=== PATIENT | male | born 1945 | race Caucasian/White ===

== ENCOUNTER 2019-12-05 14:34 | Outpatient (CLI) | payer OTHER, SELFPAY ==
--- NOTE | ~2019-12-05 | XR_ITS ---
XR hip BI 2V w AP pelvis DATE: 12/05/2019 15:29 INDICATION: Right hip pain and low back pain. No known injury. TECHNIQUE: AP pelvis. AP and lateral views of each hip. COMPARISON: 05/24/2019 CT chest abdomen pelvis FINDINGS: There is interval postoperative change since 05/24/2019, including lower lumbar laminectomy and bilateral posterior spinal fusion at L3-L5 and interbody spinal fusion at L3-4. There is a transitional fifth lumbar vertebra with sacralization and pseudoarthrosis on the left. No pelvic fracture or bone destruction. The pubic symphysis and sacroiliac joints are intact. Hip yancy nt spaces are symmetric and relatively preserved. No fracture, dislocation, avascular necrosis or bon e destruction of either hip is evident. 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 SACTION MANAGER IMPRESSION: Interval laminectomy and L3-L5 spinal fusion since 05/24/2019 Transitional lumbosacral vertebra with sacralization pseudoarthrosis on the lef t No pelvic or hip fracture or dislocation
--- NOTE | ~2019-12-05 | XR_ITS ---
EXAMINATION: XR knee LT 2V, XR knee RT 2V DATE: 12/05/2019 15:29 INDICATION: Bilateral knee pain TECHNIQUE: 1. AP and flexed lateral views of the left knee were obtained. 2. AP and flexed lateral views of the right knee were obtained. COMPARISON: None. FINDINGS: Normal alignment at both knees. No fractures. Relative symmetric mild patellofemoral predominant tric ompartmental osteoarthritis at both knees. No joint effusion at either the left or right knee. Small loose osteochondral bodies at the posterior recess of both knees. There is a larger 7.7 x 2.7 cm rim calcified heterotopic ossicle posterior to the left knee. IMPRESSION: 1. 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 Reviewed, dictated and finalized at location A. ISTRY QUALITY CONTROL ANALYST IMPRESSION: 1. Relatively symmetric mild patellofemoral predominant tricompartmental osteoa rthritis at both knees.
[2019-12-05 18:17] LABS: Folic Acid > 20.0 ng/mL (2.76->20)
== END 2019-12-05 14:35 | disposition home or self-care (01) ==
PROVIDERS: PCP Emergency Medicine; Visit Provider Emergency Medicine
DX: M25.551 Pain in right hip (principal); M25.552 Pain in left hip; M25.561 Pain in right knee; M25.562 Pain in left knee
CPT/HCPCS: 36415; 73521; 73560; 82607; 82746

== ENCOUNTER 2019-12-05 14:44 | Outpatient (CLI) | payer OTHER, SELFPAY ==
--- NOTE | ~2019-12-05 | XR_ITS ---
EXAMINATION:XR cervical spine 4-5V DATE: 12/05/2019 15:30 INDICATION: Neck pain post prior cervical spinal fusion TECHNIQUE: AP, lateral, lateral swimmers and odontoid views of the cervical spine are provided. COMPARISON: 08/12/2019 FINDINGS: Instrumented posterior spinal fusion extending from C3 through T1 with bilateral vertical rods and la teral mass screws bilaterally at C3, C4, on the left at C5, on the right at C6 and with bilateral ped icle screws at T1. No evident instrumentation failure or lucency surrounding the screws to suggest lo osening. Resection of the spinous processes of C3-C7. Unchanged minimal cervical thoracic levocurvatu re. Sagittal alignment remains normal. Vertebral body heights are normal. Unchanged mild disc height loss at C3-C4, C5-C6 and moderate disc height loss at C6-C7. Small posterior endplate osteophytes at C3-C4, C4-C5 and C5-C6. Odontoid is intact. Normal atlantoaxial interval. Atherosclerotic calcificat ions along the bilateral carotid bulbs. Prevertebral soft tissues are normal. Visualized apices of l ungs are clear. IMPRESSION: 1. Instrumented C3-T1 posterior spinal fusion. 2. No significant interval change in moderate cervical spondylosis. Reviewed, dictated and finalized at location A. CE LIAISON OFFICER
== END 2019-12-05 14:45 | disposition home or self-care (01) ==
LOC: ANHIMG 14:54
PROVIDERS: PCP Emergency Medicine; Visit Provider Neurological Surgery
DX: Z98.1 Arthrodesis status (principal); M47.892 Other spondylosis, cervical region
CPT/HCPCS: 72050

== ENCOUNTER 2019-12-08 13:13 | Outpatient (CLI) | payer OTHER, SELFPAY ==
--- NOTE | ~2019-12-08 | XR_ITS ---
XR lumbar spine min 4V DATE: 12/08/2019 13:44 INDICATION: Chronic lumbar spinal fusion TECHNIQUE: AP and lateral views. Flexion and extension lateral views. COMPARISON: 10/03/2019 lumbar spine FINDINGS: Status post lower lumbar laminectomy and posterior and interbody spinal fusion at L3-L5. Th e pedicle screws and rods appear intact, without evidence fracture or displacement since 10/03/2019. There is stable minimal retrolisthesis at L1-2 and L2-3 in neutral, flexion and extension. There is mild retrolisthesis at L3-4, in flexion, extension and neutral. No fracture or bone destruction is evident. The sacroiliac joints are intact. There is a transitional fifth lumbar vertebra with sacralization pseudoarthrosis on the left. The sacroiliac joints appear normal. There is extensive calcification and some tortuosity of the abdominal aorta. IMPRESSION: Status post lower lumbar laminectomy and posterior and interbody spinal fusion at L3-L5 Stable minimal retrolisthesis at L1-2 and L2-3 Mild retrolisthesis at L3-4 Transitional fifth lumbar vertebra with sacralization pseudoarthrosis on the left Reviewed, dictated and finalized at location B. NESS DEVELOPMENT MANAGER IMPRESSION: Status post lower lumbar laminectomy and posterior and interbody sp inal fusion at L3-L5 Stable minimal retrolisthesis at L1-2 and L2-3 Mild retrolisthesis at L3-4 Transitional fifth lumbar vertebra with sacralization pseudoarthrosis on the le ft
== END 2019-12-08 13:14 | disposition home or self-care (01) ==
LOC: ANHIMG 13:19
PROVIDERS: PCP Emergency Medicine; Visit Provider Neurological Surgery
DX: Z98.1 Arthrodesis status (principal); M96.0 Pseudarthrosis after fusion or arthrodesis
CPT/HCPCS: 72110

== ENCOUNTER 2019-12-23 09:05 | Outpatient (CLI) | payer OTHER, SELFPAY ==
[2019-12-16 15:11] VITALS: BMI 27.9
--- NOTE | ~2019-12-23 | CT_ITS ---
EXAMINATION: CT lumbar spine w con EXAM DATE: 12/23/2019 11:13 INDICATION: Back pain. Spine fusion. TECHNIQUE: Spiral CT of the lumbar spine was performed following injection of 13 mL Omnipaque 180 levon ution into the spinal canal. Axial, coronal and sagittal images were reviewed. The dose-length prod uct (DLP) for this examination was 1151.61 mGy-cm. The exposure was tailored according to patient s ize (auto mA exposure control), and iterative reconstruction (ASIR) was used as additional dose reduc tion technique. Comparison is made to prior examination from 05/08/2019. FINDINGS: There are 5 lumbar vertebral bodies. Interval L3-5 posterior and interbody fusion and lola ectomies. Hardware is intact, no periprosthetic lucency. Both intrathecal and subdural contrast. Ther e is no myelographic block. There is 3 mm retrolisthesis L3 on L4. Conus terminates at the T12-L1 lev el. Abdominal aortic ectasia and arteriosclerosis. Level by level evaluation: T10-11: There is a minimal diffuse disc bulge. Facet arthropathy: Mild to moderate. Neural foraminal stenosis: Incompletely imaged. Central canal stenosis: No stenosis. T11-12: There is a minimal diffuse disc bulge. Facet arthropathy: Mild . Ligamentum flavum enlargement. Neural foraminal stenosis: No stenosis. Central canal stenosis: Mild. T12-L1: There is a minimal diffuse disc bulge. Facet arthropathy: Mild left.. Neural foraminal stenosis: No stenosis. Central canal stenosis: No stenosis. L1-2: There is a mild to moderate diffuse disc bulge. Facet arthropathy: Mild to moderate . Ligamentum flavum enlargement. Neural foraminal stenosis: Severe left, mild to moderate right. Central canal stenosis: Moderate. Nerve root crowding L2-L3: There is a mild to moderate diffuse disc bulge. Facet arthropathy: Moderate . Ligamentum flavum enlargement. Neural foraminal stenosis: Mild to moderate bilateral. Central canal stenosis: Moderate. Nerve root crowding L3-L4: There is a mild diffuse disc bulge. Facet arthropathy: Mild bilateral. Neural foraminal stenosis: Mild to moderate left, mild right. Central canal stenosis: Posterior decompression. L4-L5: This level is fused. Facet arthropathy: Moderate to severe. Neural foraminal stenosis: Mild to moderate left, mild right. Central canal stenosis: Posterior decompression. L5-S1: There is a mild diffuse disc bulge. Facet arthropathy: Moderate. Neural foraminal stenosis: Moderate left, mild to moderate right. Central canal stenosis: No stenosis. IMPRESSION: 1. L1-2 severe left neural foraminal stenosis. 2. L1-2 and L2-3 moderate central canal stenosis with nerve root crowding. 3. Interval L3-5 laminectomies, fusion. 4. Intrathecal and subdural contrast from myelogram. Reviewed, dictated and finalized at location A. RANCE TERRITORY MANAGER
--- NOTE | ~2019-12-23 | XR_ITS ---
EXAMINATION: XR myelogram spine lumbosacral EXAM DATE: 12/23/2019 11:30 INDICATION: Back pain. Fusion. TECHNIQUE: Informed consent was obtained from the patient for doing this procedure. I discussed charmaine efits and risks including bleeding, infection, backache, headache and seizure. Alternatives also disc ussed. The DAP for this procedure was 8.5 Gycm2. Correlation made to a prior lumbar CT from last year , 05/08/2019. Time out procedure was performed. Test Rider radiograph was obtained. An entry site was chosen at the L4 level. A midline approach was used. Standard sterile prep was done with Betadine. Entry site was infiltrated with 3 cc 1% lidocaine. A 3.5 22G spinal needle was then inserted into the spinal canal . 13 milliliters Omnipaque 180 were then injected into the thecal sac. Frontal, oblique fluoroscopic images were then acquired. The patient was then transferred to CT scan for spiral CT of the lumbar spine. Following this, patient was placed in postoperative area for 2 hours observation prior to being discharged. There were no immediate complications. FINDINGS: There are 12 thoracic rib-bearing vertebral bodies and 5 nonrib-bearing lumbar vertebral brett dies. Incompletely imaged cervical fusion. There is posterior and interbody fusion L3-L5. Intrathecal contrast was confirmed. A portion of the contrast was also subdural in location, not identified unti l the CT scan. There is no myelographic block. No hardware fracture. There is 3 mm retrolisthesis L3 on L4. Lumbar facet arthropathy. IMPRESSION: Myelogram performed for subsequent CT lumbar spine. Reviewed, dictated and finalized at location A. EMS ANALYST
[2019-12-23 09:40] LABS: Mean Platelet Volume 9.6 fl (7.4-10.4); Platelet Count Result 195 k/mm3 (150-375)
[2019-12-23 09:49] LABS: Prothrombin Time 12.9 Seconds (11.1-14.7)
[2019-12-23 10:35] VITALS: BP 155/99; PULSE 77; RESP 16; O2SAT 96
[2019-12-23 11:00] VITALS: BP 161/91; PULSE 73; RESP 20
[2019-12-23 11:33] VITALS: BP 155/83; PULSE 73; RESP 16; O2SAT 95
[2019-12-23 12:00] VITALS: BP 154/82; PULSE 73; RESP 20; O2SAT 92
[2019-12-23 12:44] VITALS: BP 151/74; PULSE 77; RESP 20; O2SAT 97
--- NOTE | 2019-12-23 13:12 | SUR.PHASEII ---
1255 dr carmen at bedside to report findings to pt/spouse and give disk for follow up physician. pt meets anesthesia criteria and dr carmen criteria for discharge
== END 2019-12-23 13:14 | disposition home or self-care (01) ==
LOC: ANHSURGERY 09:08
PROVIDERS: Radiology Diagnostic Radiology; PCP Emergency Medicine; Visit Provider Neurological Surgery
DX: Z98.1 Arthrodesis status (principal); M48.061 Spinal stenosis, lumbar region without neurogenic claudication
CPT/HCPCS: 36415; 62304; 72132; 85049; 85610; Q9965

== ENCOUNTER 2020-01-19 11:00 | Outpatient (RCR) | payer OTHER, SELFPAY ==
--- NOTE | 2019-12-20 14:35 | PTOPEVAL ---
INITIAL PHYSICAL THERAPY EVALUATION and PLAN OF CARE Thank you for referring Max to [facility]. He will be seen in PT 2x/wk for 4 wks. Please review, sign, date and return this plan of care ASPEN. I agree with and certify that the following plan of care is medically necessary. Referring Physician Date Admitting Provider: Attending Provider: Tee Gonzalez MD Referring Provider: *PT Outpatient Evaluation Start: 12/20/19 12:43 Freq: Status: Active Protocol: Document 12/20/19 12:35 FRANKLIN (Rec: 12/20/19 14:35 FRANKLIN [id number]) Therapy Assessment Status Assessment Status Assessment Status Evaluation Outpatient Past Medical History Neurological History Hx Neurological Disorders No Significant History Cardiovascular History Hx Hypertension Yes Respiratory History Hx Respiratory Disorders No Significant History Gastrointestinal History Hx Gastrointestinal Disorders No Significant History Genitourinary History Hx Genitourinary Disorders No Significant History Musculoskeletal History Hx Arthritis Yes: bilat knee Hx Back Pain Yes Hx Spinal Surgery Yes: FUSION - cervical, lumbar Hematological History Hx Hematological Disorders No Significant History Endocrine History Hx Endocrine Disorders No Significant History HEENT History Hx HEENT Disorders No Significant History Integumentary History Hx Other Skin Disorders Yes: ROSACEA Reproductive History Hx Reproductive Disorders No Significant History Psychosocial History Hx Psychiatric Disorders No Significant History Pain History Has Past Pain Affected Your Daily Life Yes: BACK PAIN Anesthesia History Hx Anesthesia Reactions No Significant History Other History Hx Other Medical Conditions Yes: B12 deficiency Evaluation Information Problem Diagnosis radiculopathy, lumbar region Additional Evaluation Detail surgery 08/03/19 - fusin L3-L5 - arthritis and disc material was removed, interbody fusion L3-4 surgery 06/27/19 - fusion C3-T1 - C3-6 decompression Subjective Information May 05, 2019 - went down to Query Text:As Reported By Patient/ knees onto patio, when on Family hands/knees - no strength to get back up Eventually able to get back up into his bed. Went to ED next day - was able to get moving with wh walker - eventurally saw Dr. Quick - cervical surgery first, then lumbar spine surgery.
--- NOTE | 2020-01-10 11:35 | PCPTNOTE ---
Patient called & cancelled scheduled appointment this date due to having a pain injection, & was told rest for today.
--- NOTE | 2020-01-19 15:51 | PTOPEVAL ---
PHYSICAL THERAPY DISCHARGE SUMMARY Thank you for referring Max to [facility]. He has been seen for 7 visits and has met goals set. He is compliant with HEP - which was upgraded this date. I agree with Max' discharge from physical therapy. Referring Physician Date Admitting Provider: Attending Provider: eTe Gonzalez MD Referring Provider: *PT Outpatient Evaluation Start: 12/20/19 12:43 Freq: Status: Active Protocol: Document 01/19/20 11:10 FRANKLIN (Rec: 01/19/20 15:51 FRANKLIN [email or web address]) Therapy Assessment Status Assessment Status Assessment Status Discharge Evaluation Information Problem Subjective Information Max states that he did go Query Text:As Reported By Patient/ down into the basement when Family his son and grandson were over - didn't feel that bad. He stayed that his surgery which was scheduled for next week has been cancelled. He feels fine walking with his small base quad cane. Pain Assessment Timing of Pain Assessment Timing of Pain Assessment Assessment Pain Scale Pain Scale Used Numeric (1 - 10) Self Report Pain Assessment Bilateral Pelvis Reported Pain Level 1 Lowest Pain Intensity 0 Greatest Pain Intensity 4 Pain Score Pain Score 1: Self Report Cervical and Lumbar ROM Lumbar ROM Lumbar Flexion (0-90) 30 Query Text:Active in Degrees Lumbar Extension (0-40) 10 Query Text:Active in Degrees Lumbar Lateral Flexion Right (0-40) 15 Query Text:Active in Degrees Lumbar Lateral Flexion Left (0-40) 15 Query Text:Active in Degrees Lumbar Comments mild discomfort with side bending Myotomes Lower Extremity Myotomes Left L1,L2 Myotome-Hip Flexion Good+ 4/+/5 L3,L4 Myotome-Knee Extension Normal 5/5 L4,L5 Myotome-Ankle Dorsiflexion Good+ 4/+/5 L5 Myotome-Great Toe Extension/Gluteal Normal 5/5 Medius/Hamstring S1,S2 Myotome-Ankle Plantar Flexion/ Good+ 4/+/5 Ankle Eversion Right L1,L2 Myotome-Hip Flexion Good+ 4/+/5 L3,L4 Myotome-Knee Extension Normal 5/5 L4,L5 Myotome-Ankle Dorsiflexion Good 4/5 L5 Myotome-Great Toe Extension/Gluteal Normal 5/5 Medius/Hamstring S1,S2 Myotome-Ankle Plantar Flexion/ Good 4/5 Ankle Eversion Gait Assessment Gait Pattern Assessment Other Gait Observations with small base quad cane - improved heel/toe progression, symmetrical stance/swing
== END 2020-01-20 11:25 | disposition home or self-care (01) ==
LOC: ANHPT 11:00
PROVIDERS: PCP Emergency Medicine; Visit Provider Emergency Medicine
DX: M54.16 Radiculopathy, lumbar region (principal); R53.1 Weakness
CPT/HCPCS: 97110; 97162

== ENCOUNTER 2020-03-29 10:19 | Outpatient (CLI) | payer OTHER, SELFPAY ==
--- NOTE | ~2020-03-29 | US_ITS ---
EXAMINATION: US scrotum doppler DATE: 03/29/2020 11:05 INDICATION: Right testicular enlargement. TECHNIQUE: Grayscale and Doppler ultrasound images of the testes were obtained. COMPARISON: None. FINDINGS: The right testis measures 2.4 x 1.9 x 2.4 cm. The left testis measures 2.5 x 1.5 x 1.8 cm. The left testis is diffusely hypoechoic with asymmetric decreased vascularity. The right epididymis d emonstrates a 6 mm cyst. The left epididymis is normal with normal vascular flow. There is a large ri ght hydrocele. IMPRESSION: 1. A right hydrocele. 2. Diffusely hypoechoic left testis with asymmetric decreased vascularity, which may be secondary to infarct. Reviewed, dictated and finalized at location A. IMPRESSION: 1. A right hydrocele. 2. Diffusely hypoechoic left testis with asymmetric decreased vascularity, whic h may be secondary to infarct.
== END 2020-03-29 10:20 | disposition home or self-care (01) ==
PROVIDERS: PCP Emergency Medicine; Visit Provider Emergency Medicine
DX: N50.89 Other specified disorders of the male genital organs (principal); N43.3 Hydrocele, unspecified
CPT/HCPCS: 76870; 93976

== ENCOUNTER 2020-05-07 12:46 | Outpatient (CLI) | payer OTHER, SELFPAY ==
--- NOTE | ~2020-05-07 | XR_ITS ---
XR thoracolumbar 05/07/2020 13:11 Indication: Back pain. Post lumbar fusion. Procedure: 2 views lumbar spine Comparison: Comparison to multiple prior studies sequentially, with oldest reviewed study dated 08/02. Findings: There are surgical changes of lumbar spinal fusion from L1-L5. There are prosthetic disc de vices at L3-4 and L4-5, position unchanged. There are associated laminectomy changes at L2-L5. There is lateral bone graft mass at these levels. Hardware appears to be intact. There is atherosclerosis o f the aorta. There is moderate multilevel facet hypertrophy. No acute fracture or traumatic malalignm ent. Stable grade 1 spondylolisthesis at L4-5. There is disc narrowing at all lumbar levels. Impression: 1: Moderate lumbar spondylosis with fusion change at L1-L5. No acute abnormality of the lumbar spine. Reviewed, dictated and finalized at location A. Impression: 1: Moderate lumbar spondylosis with fusion change at L1-L5. No acute abnormalit y of the lumbar spine.
== END 2020-05-07 12:47 | disposition home or self-care (01) ==
PROVIDERS: PCP Emergency Medicine; Visit Provider Neurological Surgery
DX: Z98.1 Arthrodesis status (principal); M47.896 Other spondylosis, lumbar region
CPT/HCPCS: 72080

== ENCOUNTER 2020-05-19 11:25 | Emergency (ER) | payer OTHER, SELFPAY ==
--- NOTE | ~2020-05-19 | XR_ITS ---
EXAMINATION: XR chest 2V DATE: 05/19/2020 14:32 INDICATION: Fever. TECHNIQUE: Frontal and lateral views of the chest were obtained on 3 radiographs. COMPARISON: Chest 2 views 05/08/2019, chest CT 05/24/2019 FINDINGS: There are peripheral reticular opacities in the mid and lower lung zones. No pleural effusi on or pneumothorax. The heart size is normal. There are changes of posterior fusion procedure in cerv icothoracic spine. There are changes of posterior fusion procedure in lumbar spine. IMPRESSION: 1. Worsened peripheral reticular opacities in the mid and lower lung zones, likely chronic interstiti al lung disease. The differential diagnosis includes mild pulmonary edema. Reviewed, dictated and finalized at location A. IMPRESSION: 1. Worsened peripheral reticular opacities in the mid and lower lung zones, lik ellie chronic interstitial lung disease. The differential diagnosis includes mild pulmonary edema.
[2020-05-19 11:45] VITALS: BP 127/57; PULSE 88; RESP 20; TEMP 36.8; O2SAT 95
[2020-05-19 12:03] LABS: Basophils Percent Auto 0.4 % (0.2-1.2); Eosinophils Percent Auto 0.3 % (0-4.4); Hematocrit 39.9 % (42.0-52.0); Immature Granulocyte Absolute 0.03 K/mm3 (0.00-0.031); Immature Granulocyte Percent A 0.3 % (0-0.5); Lymphocytes Absolute Auto 0.84 K/mm3 (0.9-3.2); Lymphocytes Percent Auto 8.5 % (18.3-44.2); Mean Corpuscular HGB Conc 32.6 g/dl (32-36); Mean Corpuscular Hemoglobin 30.2 pg (26-34); Mean Corpuscular Volume 92.8 fl (80-100); Mean Platelet Volume 9.4 fl (7.4-10.4); Monocytes Percent Auto 9.8 % (2.6-8.5); Neutrophils Percent Auto 80.7 % (45.5-73.1); Platelet Count Result 224 k/mm3 (150-375); Red Cell Distribution Width 13.2 % (11.5-14.5); White Blood Count 9.9 K/mm3 (4.5-10.0)
[2020-05-19 12:13] LABS: Lactic Acid Reflex 1.4 mmol/L (0.7-2.1)
[2020-05-19 12:14] LABS: Alanine Aminotransferase 13 U/L (4-50); Albumin Level 3.8 g/dL (3.5-5.1); Alkaline Phosphatase 81 U/L (38-126); Aspartate Amino Transferase 18 U/L (17-59); Bilirubin,Total 0.8 mg/dL (0.2-1.3); Blood Urea Nitrogen 13 mg/dL (9-20); Calcium 9.5 mg/dL (8.4-10.2); Carbon Dioxide 23 mmol/L (22-30); Chloride 106 mmol/L (98-107); Estimated CRCL calculation 71 ml/min; Estimated Glomerular Filt Rate > 60; Glucose 175 mg/dL (75-110); Potassium 4.2 mmol/L (3.4-5.0); Sodium 138 mmol/L (137-145)
[2020-05-19 12:22] LABS: Add Urine Microscopic? YES; Appearance Urine Turbid (Clear); Bacteria Urine 1+ /hpf; Bilirubin Urine Negative (Negative); Blood Urine 2+ (Negative); Color Urine Yellow (Yellow); Glucose Urine UA Negative (Negative); Ketones Urine Negative (Negative); Leukocyte Esterase Ur 3+ LEU/UL (Negative); Mucus Urine Rare /lpf; Nitrate Urine Positive (Negative); Protein Urine 2+ mg/dL (Negative); RBC Urine 21-50 /hpf (0-2); Specific Grav Ur 1.013 (1.001-1.035); Urobilinogen Urine Negative mg/dL (<2.0); WBC Clumps Urine Present /HPF; WBC Urine >75 /hpf
[2020-05-19 13:00] VITALS: BP 160/66; PULSE 92; RESP 20; O2SAT 99
--- NOTE | 2020-05-19 13:39 | ED.FEVER ---
HPI - Fever General Chief Complaint: Fever Stated Complaint: fever Time Seen by Provider: 05/19/20 13:18 Source: patient and family Mode of arrival: ambulatory Limitations: no limitations History of Present Illness HPI Narrative: Patient is a 74-year-old male who presents for evaluation of fever. Patient has had a 103 degree fever at home throughout the night, improved with Tylenol. Patient also reports some dysuria without hematuria. No nausea, vomiting or flank pain. Patient also reports a dry cough. No shortness of breath or chest pain. No abdominal pain. Patient has history of UTI approximately 2 months ago, treated outpatient with antibiotics. Patient has a recent history of spinal surgery at [facility] by Dr. Quick. Patient denies any difficulty with urination or saddle anesthesia. No numbness or weakness. Related Data Home Medications Medication Instructions Recorded Confirmed calcium carbonate-vitamin D3 1 cap PO DAILY 12/16/19 12/16/19 [Calcium 600 + D(3)] calcium polycarbophil [FiberCon] 625 mg PO DAILY 12/16/19 12/16/19 folic acid 1 mg PO DAILY 12/16/19 12/16/19 multivitamin 1 tablet PO DAILY 12/16/19 12/16/19 sildenafil 50 mg PO DAILY PRN 12/16/19 12/16/19 Allergies Allergy/AdvReac Type Severity Reaction Status Date / Time No Known Allergies Allergy Verified 05/19/20 12:57 Review of Systems Review of Systems: Narrative: CONSTITUTIONAL: Reports fever and chills CARDIOVASCULAR: Denies chest pain RESPIRATORY: Denies cough or dyspnea. GASTROINTESTINAL: Denies abdominal pain : Reports dysuria SKIN: Denies rash MUSCULOSKELETAL: Denies back pain NEUROLOGIC: Denies headache [facility] Past Medical History Medical History (Updated 05/19/20 @ 15:16 by Hyacinth Serrano MD) Central spinal stenosis Dysuria Hip pain Knee pain Radiculopathy Testicular swelling Vitamin B 12 deficiency Surgical History Surgical History (Updated 05/19/20 @ 13:41 by Hyacinth Serrano MD) H/O Spinal surgery Social History Social History Smoking status: Never smoker Exam Narrative: Exam Narrative: GENERAL: Awake, alert, conversant HEAD: Normocephalic, atraumatic. EYES: PERRLA and EOMI. ENT: Nares clear, no rhinorrhea or epistaxis. Mucous membranes moist. NECK: Supple. CHEST: No respiratory distress, breathing even and non labored HEART: Regular rate, sinus rhythm ABDOMEN:Non distended, non tender EXTREMITIES: Normal range of motion. No edema. SKIN: Warm, dry, no rash. NEURO:No focal deficits. Alert and oriented x3 Course Vital Signs Vital signs: Vital Signs Temperature 36.8 C 05/19/20 11:45 Pulse Rate 88 05/19/20 11:45 Respiratory Rate 20 05/19/20 11:45 Blood Pressure 127/57 L 05/19/20 11:45 Pulse Oximetry 95 05/19/20 11:45 Temperature 36.8 C 05/19/20 11:45 Pulse Rate 92 05/19/20 13:00 Respiratory Rate 20 05/19/20 13:00 Blood Pressure 160/66 H 05/19/20 13:00 Pulse Oximetry 99 05/19/20 13:00 MDM - Fever MDM Narrative Medical decision making narrative: The patient presented for evaluation of dysuria and fever. The time of initial assessment ABCs are intact and vital signs are stable. Patient is afebrile here. No hypotension or tachycardia. Patient urinalysis consistent with a urinary tract infection. IV access obtained and patient was given IV fluids and first dose of antibiotics. No urine cultures in the patient chart to check for sensitivities. Patient has no sign of severe sepsis or septic shock. Obtain a chest x-ray as patient is reporting a mild, chronic cough, there are reticular opacities not consistent with COVID type features or community-acquired pneumonia. Will start patient on Keflex for urinary tract infection, advised follow-up with his primary care provider or to return should his fever worsen, have worsening pain or inability to tolerate the antibiotic. Given patient has no abdomin
[2020-05-19] MEDS: SODIUM CHLORIDE 0.9% IV 1,000 ML 999 ML IV CONT (14:01)
[2020-05-19 15:22] VITALS: BP 145/80; PULSE 88; RESP 20; O2SAT 99
[2020-05-20 12:58] LABS: SARS-CoV-2 RNA PCR Negative
== END 2020-05-19 15:33 | disposition home or self-care (01) ==
PROVIDERS: Emergency Provider Emergency Medicine; PCP Emergency Medicine
DX: N39.0 Urinary tract infection, site not specified (principal); Z20.828 Contact with and (suspected) exposure to other viral communicable diseases; R91.8 Other nonspecific abnormal finding of lung field; E55.9 Vitamin D deficiency, unspecified
CPT/HCPCS: 36415; 71046; 80053; 81001; 83605; 85025; 87077; 87086; 87088; 87186; 87635; 96365; 99284; C9803; J0696; J7030; U0003

== ENCOUNTER 2020-06-04 12:46 | Outpatient (CLI) | payer OTHER, SELFPAY ==
--- NOTE | ~2020-06-04 | XR_ITS ---
EXAMINATION: XR lumbar spine 2-3V EXAM DATE: 06/04/2020 13:22 INDICATION: Spinal fusion. TECHNIQUE: Lumber spine frontal, lateral, lateral L5-S1 projections for interpretation. Comparison is made to prior examination from 05/07/2020. FINDINGS: Posterior fusion, supporting pedicular screws L1-L5. There is interbody fusion L3-4 and L4 -5. Hardware is in position. No hardware fracture. Mild to moderate disc disease L1-2 and mild at L2- 3. Mild to moderate disc disease L5-S1. Lumbar laminectomies with posterior osseous fusion bone graft material. Ectatic abdominal aorta with mild to moderate scattered arterial sclerosis. No endplate er osive change. IMPRESSION: Intact lumbar fusion. Laminectomies. Reviewed, dictated and finalized at location A.
== END 2020-06-04 12:47 | disposition home or self-care (01) ==
PROVIDERS: PCP Emergency Medicine; Visit Provider Neurological Surgery
DX: Z98.1 Arthrodesis status (principal)
CPT/HCPCS: 72100

== ENCOUNTER 2020-07-18 12:24 | Outpatient (CLI) | payer OTHER, SELFPAY ==
--- NOTE | ~2020-07-18 | XR_ITS ---
EXAMINATION: XR lumbar spine 2-3V DATE: 07/18/2020 13:00 INDICATION: Lumbar spinal fusion. TECHNIQUE: 3 views of lumbar spine were obtained. COMPARISON: Lumbar spine radiograph 06/04/2020, CT lumbar spine 12/23/2019 FINDINGS: There is 4 degrees dextrocurvature of lumbar spine. There is 3 mm retrolisthesis of L1 on L 2 and L3 on L4. Vertebral body heights are normal. There are changes of anterior fusion procedure at L3-L4 and L4-L5 with interbody devices. There are changes of posterior fusion procedure from L1 to L5 with pedicle screws. There is mildly decreased disc height at L1-L2. IMPRESSION: 1. Mild lumbar spondylosis. 2. Anterior fusion procedure from L3 to L5. 3. Posterior fusion procedure from L1 to L5. Reviewed, dictated and finalized at location A.
== END 2020-07-18 12:25 | disposition home or self-care (01) ==
LOC: ANHIMG 12:29
PROVIDERS: PCP Emergency Medicine; Visit Provider Neurological Surgery
DX: Z98.1 Arthrodesis status (principal); M47.896 Other spondylosis, lumbar region
CPT/HCPCS: 72100

== ENCOUNTER 2020-07-24 09:34 | Outpatient (CLI) | payer OTHER, SELFPAY ==
--- NOTE | ~2020-07-24 | US_ITS ---
US scrotum doppler INDICATION: Right hydrocele. TECHNIQUE: Testicular sonogram utilizing grayscale and color Doppler. COMPARISON: Ultrasound dated 03/29/2020 FINDINGS: The left testicle is diffusely hypoechoic with decreased vascularity, no significant change from prior study. The right testes measures 2.1 x 2 x 1.8 cm centimeters, and the left testis measur es 2.7 x 1.8 x 1.3 cm cm. There is normal vascular flow to both testes. There is a 4 mm right epididymal cysts. There is a large right hydrocele. IMPRESSION: 1. Diffusely hypoechoic left testicle with decreased vascularity, possibly from previous infarct. No significant interval change from prior study. 2: Large right hydrocele. Reviewed, dictated and finalized at location A. IMPRESSION: 1. Diffusely hypoechoic left testicle with decreased vascularity, possibly fro m previous infarct. No significant interval change from prior study. 2: Large right hydrocele.
== END 2020-07-24 09:35 | disposition home or self-care (01) ==
PROVIDERS: PCP Emergency Medicine; Visit Provider Urology
DX: N43.3 Hydrocele, unspecified (principal); R93.5 Abnormal findings on diagnostic imaging of other abdominal regions, including retroperitoneum
CPT/HCPCS: 76870; 93976

== ENCOUNTER 2020-12-04 09:41 | Outpatient (CLI) | payer OTHER, SELFPAY ==
--- NOTE | ~2020-12-04 | XR_ITS ---
XR lumbar spine 2-3V DATE: 12/04/2020 10:06 INDICATION: Lumbar spinal fusion in April 2020 TECHNIQUE: AP, lateral, coned lateral lumbosacral views COMPARISON: 07/18/2020 lumbar spine FINDINGS: Pedicle screws and rods extend from L1 through L5. There is interbody spinal fusion at L3-4 and L4-5. There is no evidence of hardware displacement or failure since 07/18/2020. Lumbar laminectomy is noted as well. There is diffuse osteopenia. There is degenerative change of the lower thoracic spine. No fracture or bone destruction is evident. The sacroiliac joints appear normal. Extensive calcification of the abdominal aorta, without evidence of aneurysm. Common iliac artery karrie cifications. IMPRESSION: Status post posterior spinal fusion at L1-L5, interbody spinal fusion at L3-4 and L4-5 tr ansitional fifth lumbar vertebra sacralization pseudoarthrosis on the left. Reviewed, dictated and finalized at location A. IOLOGY TECHNOLOGIST IMPRESSION: Status post posterior spinal fusion at L1-L5, interbody spinal fusi on at L3-4 and L4-5 transitional fifth lumbar vertebra sacralization pseudoarth rosis on the left.
== END 2020-12-04 09:42 | disposition home or self-care (01) ==
PROVIDERS: PCP Emergency Medicine; Visit Provider Neurological Surgery
DX: Z98.1 Arthrodesis status (principal)
CPT/HCPCS: 72100

== ENCOUNTER 2021-03-01 11:09 | Emergency (ER) | payer OTHER, SELFPAY ==
[2021-03-01 11:25] VITALS: BP 176/89; PULSE 75; RESP 16; TEMP 36.4; O2SAT 100
--- NOTE | 2021-03-01 11:34 | ED.MALEGU ---
HPI - Male Genitourinary General Chief complaint: Urogenital-Male Stated complaint: uti Time Seen by Provider: 03/01/21 11:34 Source: patient Mode of arrival: ambulatory Limitations: no limitations History of Present Illness HPI Narrative: Max Stone is a 75 yo male with gout, BPH, who comes to express care because thinks has a uti. State is painful to urinate, able to empty bladder. Denies back pain. Started yesterday . has had Covid immunization. Related Data Home Medications Medication Instructions Recorded Confirmed calcium carbonate-vitamin D3 1 cap PO DAILY 12/16/19 12/16/19 [Calcium 600 + D(3)] calcium polycarbophil [FiberCon] 625 mg PO DAILY 12/16/19 12/16/19 folic acid 1 mg PO DAILY 12/16/19 12/16/19 multivitamin 1 tablet PO DAILY 12/16/19 12/16/19 tamsulosin mg PO 03/01/21 Allergies Allergy/AdvReac Type Severity Reaction Status Date / Time No Known Allergies Allergy Verified 05/19/20 12:57 Review of Systems Review of Systems: Narrative: CONSTITUTIONAL: Denies fever, chills, sweats. EYES: Denies visual changes, redness, discharge. ENT: Denies rhinorrhea, congestion, sore throat, otalgia. CARDIOVASCULAR: Denies chest pain, palpitations, edema. RESPIRATORY: Denies dyspnea, wheezing, cough GASTROINTESTINAL: Denies abdominal pain, nausea, vomiting, diarrhea. GENITOURINARY: has dysuria, hematuria, abnormal discharge SKIN: Denies rash or itching. NEUROLOGIC: Denies numbness, or focal weakness. PSYCHIATRIC: Denies anxiety or depression. Painful urination PMFSH Past Medical History Medical History (Updated 03/01/21 @ 12:09 by Virginia Sousa CNP) Central spinal stenosis Dysuria Hip pain Knee pain Radiculopathy Testicular swelling Vitamin B 12 deficiency Surgical History Surgical History H/O Spinal surgery Family History Family History Mother Patient's mother is , Onset Age: 101 Father Family history of cardiovascular disease, Onset Age: 66 Sibling Family history of Parkinson's disease Social History Social History Smoking status: Never smoker Comments At time of signature, I agree with nursing past medical, surgical, social and family history. There is no relevant family history pertinent to the presenting complaint. BP is elevated today- hasn't taken BP med today yet Exam Narrative: Exam Narrative: GENERAL: This is a well-nourished, well-developed patient, in mild distress. HEAD: normocephalic, atraumatic. EYES: Sclera clear/white. Vision is grossly intact. EARS: External ears normal, Hearing grossly intact. NOSE: External nose normal without nasal discharge, nares without redness, no rhinorrhea. THROAT: Mucous membranes moist, NECK: Neck supple, CARDIOVASCULAR: Regular rate and rhythm without murmurs, gallops, or rubs. RESPIRATORY: Clear to auscultation. Breath sounds equal bilaterally. No wheezes, rales, or rhonchi. GASTROINTESTINAL: Abdomen soft, SKIN: warm, intact with no suspicious lesions or rash, good texture and turgor. NEURO: awake, alert, and oriented to person, place and time. There were no obvious focal neurologic abnormalities. Steady gait EXTREMITIES: Normal range of motion. BACK: Nontender without deformity Course Course Emergency Course: Max Stone is a 75-year-old male with recurrent UTI and BPH [facility] with complaints of dysuria x3 weeks. His PCP is given 2 weeks of Bactrim and the symptoms improved as soon as he finishes prescription they return UA shows 2+ leukocytes and trace blood Started on Cipro 500 mg 1 twice daily x7 [id number] with urologist if any symptoms recur Vital Signs Vital signs: Vital Signs Temperature 97.5 F L 03/01/21 11:25 Pulse Rate 75 03/01/21 11:25 Respiratory Rate 16 03/01/21 11:25 Bl
== END 2021-03-01 12:13 | disposition home or self-care (01) ==
PROVIDERS: Emergency Provider Nurse Practitioner; PCP Emergency Medicine
DX: N39.0 Urinary tract infection, site not specified (principal)
CPT/HCPCS: 81003; 87077; 87086; 87088; 87186; 99213; G0463

== ENCOUNTER 2021-04-03 11:07 | Outpatient (CLI) | payer OTHER, SELFPAY ==
--- NOTE | ~2021-04-03 | XR_ITS ---
XR lumbar spine 2-3V DATE: 04/03/2021 11:32 INDICATION: Lumbar spinal fusion TECHNIQUE: AP and lateral views, coned lateral lumbosacral COMPARISON: December 04, 2020 lumbar spine FINDINGS: Status post lumbar laminectomy. Bone graft material is noted at the posterior elements bila terally. Posterior pedicle screws and rods are noted at L1-L5, with interbody spinal fusion by cage d evices at L3-4 and L4-5. Hardware appears intact without apparent fracture or displacement. Stable minimal retrolisthesis at L1-2, stable mild retrolisthesis at L3-4. Stable mild grade 1 anterolisthesis at L4-5. Moderate degenerative disc disease at L1-2 and L5-S1. Diffuse osteopenia. Transitional fifth lumbar vertebra with sacralization pseudoarthrosis on the left. Sacral iliac joints are normal. Extensive calcification of the abdominal aorta and iliac arterial calcification. IMPRESSION: No significant change since December 04, 2020 Reviewed, dictated and finalized at location A.
== END 2021-04-03 11:08 | disposition home or self-care (01) ==
LOC: ANHIMG 11:11
PROVIDERS: PCP Emergency Medicine; Visit Provider Neurological Surgery
DX: Z98.1 Arthrodesis status (principal)
CPT/HCPCS: 72100

== ENCOUNTER 2022-04-02 13:10 | Outpatient (CLI) | payer OTHER, SELFPAY ==
--- NOTE | ~2022-04-02 | XR_ITS ---
EXAMINATION: XR lumbar spine 2-3V DATE: 04/02/2022 13:49 INDICATION: Lumbar spinal fusion follow-up. TECHNIQUE: 3 views of lumbar spine were obtained. COMPARISON: Lumbar spine radiograph 04/03/2021 FINDINGS: There is 3 mm retrolisthesis of L1 on L2. And L3 on L4. There are. Vertebral body heights a re normal. There are changes of posterior fusion procedure from L1 to L5 with pedicle screws. There a re changes of anterior fusion procedures at L3-L4 and L4-L5 with interbody devices. There is mildly d ecreased disc height at L1-L2 and L5-S1. IMPRESSION: 1. Mild lumbar spondylosis. 2. Anterior fusion procedures at L3-L4 and L4-L5. 3. Posterior fusion procedure from L1 to L5. Reviewed, dictated and finalized at location A.
== END 2022-04-02 13:11 | disposition home or self-care (01) ==
PROVIDERS: PCP Emergency Medicine; Visit Provider Neurological Surgery
DX: M47.896 Other spondylosis, lumbar region (principal); Z98.1 Arthrodesis status
CPT/HCPCS: 72100

== ENCOUNTER 2023-05-18 12:14 | Outpatient (CLI) | payer OTHER, SELFPAY ==
--- NOTE | 2023-05-18 12:22 | ECHO_ITS ---
Patient Info Name: Max Stone Age: 77 years : 1945 Gender: Male Ht: 70 in Wt: 218 lbs BSA: 2.24 m2 HR: 76 bpm BP: 171 / 100 mmHg Heart Rhythm: Sinus Rhythm Technical Quality: Good Exam Date: 05/18/2023 1:03 PM Exam Location: [facility] Patient Status: Outpatient Admit Date: 05/18/2023 Staff Ordering Physician: Asad Kinney DO Book Solicitor: Jessy Deutsch RDCS Attending Provider: Asad Kinney DO Referring Physician: Nirmal RODRIGUEZ; Exam Type: CA echo doppler color flow Study Info Indications I35.0 - Nonrheumatic aortic (valve) stenosis Complete two-dimensional, color flow and Doppler transthoracic echocardiogram is performed. Summary 1. Complete two-dimensional, color flow and Doppler transthoracic echocardiogram is performed. 2. Left ventricular chamber dimension is normal. 3. Left ventricular systolic function is normal, estimated at 60-65%. 4. The left ventricular diastolic function is grade I diastolic dysfunction. 5. E/e' 9 is minimally elevated. 6. Left atrial chamber dimension is mildly enlarged. 7. There is severe aortic valve sclerosis. 8. There is mild aortic valve stenosis with a peak velocity of 258 cm/s, mean gradient of 15 mmHg, and aortic valve area of 1.9 cm2. 9. The mitral valve has moderately calcified leaflets and moderately calcified annulus. Left Ventricle E/e' 9 is minimally elevated. Left ventricular chamber dimension is normal. Left ventricular systolic function is normal, estimated at 60-65%. The left ventricular diastolic function is grade I diastolic dysfunction. Right Ventricle Right ventricular systolic function is normal and with normal TAPSE 2.0 cm. Right ventricular chamber dimension is normal. Left Atria Left atrial chamber dimension is mildly enlarged. Right Atria Right atrial chamber dimension is normal. Aortic Valve The aortic valve is trileaflet. There is severe aortic valve sclerosis. There is mild aortic valve stenosis with a peak velocity of 258 cm/s, mean gradient of 15 mmHg, and aortic valve area of 1.9 cm2. There is no aortic valve regurgitation. Pulmonic Valve There is trace pulmonic regurgitation. Mitral Valve The mitral valve has moderately calcified leaflets and moderately calcified annulus. There is no mitral valve stenosis. There is no mitral valve regurgitation. Tricuspid Valve There is no tricuspid valve regurgitation. Pericardium/Pleural There is no pericardial effusion. Inferior Vena Cava Normal inferior vena cava with >50% collapse upon inspiration consistent with normal right atrial pressure, 5 mmHg. Aorta The aortic root size at the sinus of Valsalva is normal. Left Ventricular Outflow Tract Name Value Normal LVOT 2D LVOT Diameter 2.6 cm LVOT Doppler LVOT Peak Gradient 4 mmHg LVOT Mean Gradient 2 mmHg LVOT VTI 24 cm LVOT VTI/AV VTI Ratio 0.4 LVOT Stroke Volume 123 ml LVOT CO 6.1 l/min LVOT CI 2.7 l/min/m2 Pulmonic Valve
== END 2023-05-18 12:15 | disposition home or self-care (01) ==
PROVIDERS: PCP Emergency Medicine; Visit Provider Internal Medicine Cardiovascular Disease
DX: I35.0 Nonrheumatic aortic (valve) stenosis (principal)
CPT/HCPCS: 93306

== ENCOUNTER 2024-07-09 13:37 | Emergency (ER) | payer OTHER, SELFPAY ==
[2024-07-09 13:53] VITALS: BP 150/75; PULSE 89; RESP 16; TEMP 36.7; O2SAT 98
--- NOTE | 2024-07-09 13:53 | ED.NAVMDI ---
HPI - Nausea/Vomiting/Diarrhea General Chief complaint: Nausea/Vomiting/Diarrhea Stated complaint: diarrhea Time Seen by Provider: 07/09/24 13:53 Source: patient Mode of arrival: ambulatory Limitations: no limitations History of Present Illness HPI Narrative: 78-year-old male presents with complaint of diarrhea for 5 days. Reports diarrhea started 1 day after eating fried chicken at a restaurant. Patient had 3 episodes of diarrhea the 1st day and then 1 or 2 episodes of diarrhea the following days. Has taking an imodium here and there but not consistently. no abdominal pain or bloating. Afebrile. No urinary symptoms. Yesterday he thought diarrhea is better and then woke up this morning and had a no other episode of diarrhea [place]. Reports more solid today. Patient well-appearing. All systems reviewed and negative except as noted above. Related Data Home Medications Medication Instructions Recorded Confirmed calcium carbonate 600 mg-vitamin 1 cap PO DAILY 12/16/19 07/09/24 D3 5 mcg (200 unit) capsule (Calcium 600 + D(3)) calcium polycarbophil 625 mg 625 mg PO DAILY 12/16/19 07/09/24 tablet (FiberCon) folic acid 1 mg tablet 1 mg PO DAILY 12/16/19 07/09/24 multivitamin 1 tablet PO DAILY 12/16/19 07/09/24 doxycycline hyclate 20 mg tablet 40 mg PO DAILY 07/09/24 07/09/24 Allergies Allergy/AdvReac Type Severity Reaction Status Date / Time No Known Allergies Allergy Verified 07/09/24 13:45 Review of Systems Review of Systems: CONSTITUTIONAL: Denies fever, chills, or sweats. EYES: Denies visual changes, redness, or discharge. ENT: Denies rhinorrhea, congestion, sore throat, or otalgia. CARDIOVASCULAR: Denies chest pain, palpitations, or edema. RESPIRATORY: Denies cough or dyspnea. GASTROINTESTINAL: Denies abdominal pain, nausea, vomiting . Reports diarrhea. GENITOURINARY: Denies dysuria or hematuria. SKIN: Denies rash or itching. MUSCULOSKELETAL: Denies back pain, joint pain, or myalgia. NEUROLOGIC: Denies headache, numbness, or weakness. PSYCHIATRIC: Denies anxiety or depression. All other systems reviewed are negative, except as documented in HPI. FORMERLY [facility], [facility] Past Medical History Medical History Central spinal stenosis Cervical stenosis of spine Closed fracture of one rib of right side Constipation Deficiency of other specified B group vitamins (05/20/19) Dysuria Dysuria Hip pain History of fall Hyperglycemia Knee pain Muscle spasms of both lower extremities Myelomalacia of cervical cord Patient had no falls in past year Radiculopathy Testicular swelling Vitamin B 12 deficiency Vitamin D deficiency Surgical History Surgical History H/O Spinal surgery Family History Family History (Updated 05/23/24 @ 15:41 by NEETU Tan) Mother Patient's mother is , Onset Age: 101 Father Family history of cardiovascular disease, Onset Age: 66 Acute myocardial infarction Sibling Family history of Parkinson's disease Social History Social History (Updated 05/23/24 @ 15:43 by NEETU Tan) Smoking status: Never smoker Second hand tobacco smoke exposure: Yes Alcohol intake: current Substance use: never Substance use type: does not use Do You Feel Safe in your Home?: Yes Lack of Transportation: No Lack of Food: Never True Current Housing: Decline to Answer Concerned About Future Housing: Decline to Answer Difficulty Paying Gas/Electric Bills: Decline to Answer Difficulty Paying for Meds: Decline to Answer Currently Unemployed: Decline to Answer Education: Trade/Vocational Certificate Difficulty w/ Childcare or Family Care: Decline to Answer Living arrangements: with family Occupation/Education: retired Additional occupation/education comments: [employer] Gender identity (if verbalized by
== END 2024-07-09 14:16 | disposition home or self-care (01) ==
PROVIDERS: Emergency Provider Nurse Practitioner Family; PCP Emergency Medicine
DX: R19.7 Diarrhea, unspecified (principal); M48.02 Spinal stenosis, cervical region; E55.9 Vitamin D deficiency, unspecified
CPT/HCPCS: 99211; G0463

== ENCOUNTER 2024-07-11 15:44 | Observation (INO) | payer OTHER, SELFPAY ==
--- NOTE | ~2024-07-11 | CT_ITS ---
EXAMINATION: CT abdomen pelvis wo con DATE: 07/11/2024 18:09 INDICATION: diarrhea x 10 days TECHNIQUE: Computed tomography (CT) of the abdomen and pelvis was performed without intravenous contr ast. Automated exposure control and iterative reconstruction technique were employed. The dose-length product was 992.01 mGy-cm. COMPARISON: CT cap 05/24/2019. FINDINGS: Lower thorax: Coronary artery and aortic valve calcifications. Mild peripheral reticulation in the lo wer lungs, may represent chronic interstitial or senescent change. Liver: Normal. Biliary/Gallbladder: Gallbladder is normal. No bile duct dilation. Pancreas: No mass or duct dilation. Spleen: Normal. Adrenals:No mass. Kidneys: Simple left upper pole cyst. 13 mm indeterminate density exophytic left midpole lesion, unch anged in size or morphology, likely proteinaceous or hemorrhagic cyst. Bilateral perinephric strandin g. Multiple nonobstructing bilateral calculi. GI tract: No small or large bowel dilation. Mild wall thickening of the distal sigmoid and rectum. No rmal appendix. Mesentery/Peritoneum: No ascites, mass, or free air. Retroperitoneum: No mass. Atherosclerotic abdominal aortic and/or arterial calcifications. Pelvis: Moderately distended urinary bladder with wall thickening and mild stranding. Prostatomegaly with calcification. Soft Tissues: Small uncomplicated left and moderate right fat-containing umbilical hernias. Small unc omplicated umbilical hernia containing fat. Bones: No acute osseous finding. Uncomplicated appearing fusion hardware spanning L1-L5. Interbody d evices at L3-4 and L4-5. L1 hemangioma. IMPRESSION: Mild distal sigmoid and rectal wall thickening may reflect a component of colitis in the appropriate context. Cystitis versus bladder wall thickening from chronic outlet obstruction. Reviewed, dictated and finalized at location K. IMPRESSION: Mild distal sigmoid and rectal wall thickening may reflect a component of colit is in the appropriate context. Cystitis versus bladder wall thickening from chronic outlet obstruction.
--- NOTE | ~2024-07-11 | US_ITS ---
EXAMINATION: US renal BI DATE: 07/12/2024 11:13 INDICATION: Acute renal insufficiency TECHNIQUE: Multiple ultrasound grayscale images of the kidneys were obtained. COMPARISON: CT dated 07/21/2024 FINDINGS: The right kidney measures 12.0 x 6.1 x 5.6 cm. The left kidney measures 10.8 x 6.1 x 6.1 cm. The kidn eys demonstrate normal echogenicity. 1.5 cm anechoic cyst at the upper pole of the left kidney. There is no hydronephrosis in either kidney. 9 mm echogenic and shadowing stone in the left kidney. The b ladder is normal with bilateral ureteral jets visualized on color Doppler. IMPRESSION: 1. 9 mm none obstructing left renal stone. No nephrolithiasis. Reviewed, dictated and finalized at location B.
[2024-07-11 16:04] VITALS: BP 95/52; PULSE 92; RESP 16; TEMP 36.5; O2SAT 93
[2024-07-11 16:14] VITALS: BP 84/47
--- NOTE | 2024-07-11 16:14 | ED.NAVMDI ---
HPI - Nausea/Vomiting/Diarrhea General Chief complaint: Nausea/Vomiting/Diarrhea <Maricarmen Deluca PA-C - Last Filed: 07/13/24 09:35> Stated complaint: DIARRHEA FOR PAST WEEK <Maricarmen Deluca PA-C - Last Filed: 07/13/24 09:35> Time Seen by Provider: 07/11/24 16:14 <Maricarmen Deluca PA-C - Last Filed: 07/13/24 09:35> Focused HPI: this is an 78-year-old male that presents to the emergency department for diarrhea. Ongoing over the last week. Does report the stool has been dark. Denies fevers. GENERAL: Well-appearing, well-nourished, and in no acute distress. HEAD: Normocephalic, atraumatic. CHEST: Clear to auscultation. ?No respiratory distress. HEART: Regular rate and rhythm.? NEURO: ?Alert and oriented x3. Patient screened in triage and initial orders placed.? ?Additional care and disposition to be based upon?diagnostic testing and treatment. <Maricarmen Deluca PA-C - Last Filed: 07/13/24 09:35> Source: patient and family <Rupa Lehman APRN - Last Filed: 07/11/24 20:33> Mode of arrival: ambulatory <Rupa Lehman APRN - Last Filed: 07/11/24 20:33> Limitations: no limitations <Rupa Lehman APRN - Last Filed: 07/11/24 20:33> History of Present Illness HPI Narrative: I agree with the statement and assessment reported by Maricarmen Deluca PA-C. Patient is a 78-year-old male who presents to the ER with a 10 day history of diarrhea. He denies nausea, vomiting, or stomach cramps. Pt denies any recent antibiotic use. He denies chest pain, shortness a breath, but endorses recent incontinence of stool. Patient has no urinary complaints. <Rupa Lehman APRN - Last Filed: 07/11/24 20:33> Related Data Home medications: Home Medications Medication Instructions Recorded Confirmed calcium carbonate 600 mg-vitamin 1 cap PO DAILY 12/16/19 07/11/24 D3 5 mcg (200 unit) capsule (Calcium 600 + D(3)) calcium polycarbophil 625 mg 625 mg PO DAILY 12/16/19 07/11/24 tablet (FiberCon) folic acid 1 mg tablet 1 mg PO DAILY 12/16/19 07/11/24 multivitamin 1 tablet PO DAILY 12/16/19 07/11/24 doxycycline hyclate 20 mg tablet 40 mg PO BID 07/09/24 07/11/24 acetaminophen 500 mg tablet 1,000 mg PO QHS 07/11/24 07/11/24 atorvastatin 40 mg tablet 40 mg PO DAILY 07/11/24 07/11/24 cholecalciferol (vitamin D3) 50 50 mcg PO BID 07/11/24 07/11/24 mcg (2,000 unit) tablet gabapentin 300 mg capsule 300 mg PO QAM 07/11/24 07/11/24 gabapentin 300 mg capsule 600 mg PO HS 07/11/24 07/11/24 ibuprofen 200 mg tablet 200 mg PO QAM 07/11/24 07/11/24 losartan 100 1 tablet PO DAILY 07/11/24 07/11/24 mg-hydrochlorothiazide 12.5 mg tablet omega 0-bvk-hbx-fish oil 100 1 cap PO BID 07/11/24 07/11/24 mg-160 mg-1,000 mg capsule (Fish Oil) <Maricarmen Deluca PA-C - Last Filed: 07/13/24 09:35> Allergies/Adverse reactions: Allergies Allergy/AdvReac Type Severity Reaction Status Date / Time No Known Allergies Allergy Verified 07/09/24 13:45 <Maricarmen Deluca PA-C - Last Filed: 07/13/24 09:35> Review of Systems Review of Systems: All systems reviewed & are unremarkable except as noted in HPI and below <Maricarmen Deluca PA-C - Last Filed: 07/13/24 09:35> [facility] Past Medical History Medical History: Medical History Central spinal stenosis Cervical stenosis of spine Closed fracture of one rib of right side Constipation Deficiency of other specified B group vitamins (05/20/19) Dysuria Dysuria Hip pain History of fall Hyperglycemia Knee pain Muscle spasms of both lower extremities Myelomalacia of cervical cord Patient had no falls in past year Radiculopathy Testicular swelling Vitamin B 12 deficiency Vitamin D deficiency <Maricarmen Deluca PA-C - Last Filed: 07/13/24 09:35> Surgical History Surgical History: Surgical History H/O Spin
[2024-07-11 16:54] LABS: Basophils Percent Auto 0.6 % (0.2-1.2); Eosinophils Absolute Auto 0.1 K/mm3 (0-0.3); Eosinophils Percent Auto 2.2 % (0-4.4); Hematocrit 39.2 % (42.0-52.0); Hemoglobin 12.8 g/dL (14.0-18.0); Immature Granulocyte Absolute 0.02 K/mm3 (0.00-0.031); Immature Granulocyte Percent A 0.4 % (0-0.5); Lymphocytes Absolute Auto 1.09 K/mm3 (0.9-3.2); Lymphocytes Percent Auto 20.4 % (18.3-44.2); Mean Corpuscular HGB Conc 32.7 g/dl (32-36); Mean Corpuscular Hemoglobin 31.9 pg (26-34); Mean Corpuscular Volume 97.8 fl (80-100); Mean Platelet Volume 10.4 fl (7.4-10.4); Monocytes Absolute Auto 0.5 K/mm3 (0.1-0.6); Neutrophils Absolute Auto 3.6 K/mm3 (1.3-6.7); Neutrophils Percent Auto 67.4 % (45.5-73.1); Platelet Count Result 184 k/mm3 (150-375); Red Blood Count 4.01 M/mm3 (4.6-6.20); Red Cell Distribution Width 13.2 % (11.5-14.5); White Blood Count 5.4 K/mm3 (4.5-10.0)
[2024-07-11 17:04] LABS: Chloride 100 mmol/L (98-107)
[2024-07-11 17:09] LABS: Prothrombin Time 13.8 Seconds (11.1-14.7)
[2024-07-11 17:10] LABS: Partial Thromboplastin Time 25.2 Seconds (22.3-36.8)
[2024-07-11 17:12] LABS: Alanine Aminotransferase 17 U/L (6-50); Albumin Level 4.1 g/dL (3.5-5.1); Alkaline Phosphatase 63 U/L (38-126); Anion Gap 12 mmol/L (4-12); Aspartate Amino Transferase 28 U/L (17-59); Bilirubin,Total 0.9 mg/dL (0.2-1.3); Blood Urea Nitrogen 33 mg/dL (9-20); Calcium 9.4 mg/dL (8.4-10.2); Carbon Dioxide 22 mmol/L (22-30); Estimated CRCL calculation 27 ml/min; Estimated Glomerular Filt Rate 27; Glucose 110 mg/dL (65-110); Lipase 64 U/L (23-300); Potassium 4.4 mmol/L (3.4-5.0); Sodium 134 mmol/L (137-145)
[2024-07-11] MEDS: SODIUM CHLORIDE 0.9% IV 1,000 ML 999 ML IV CONT (18:22)
[2024-07-11 18:23] VITALS: BP 136/64; PULSE 77; RESP 16; O2SAT 96
[2024-07-11 18:59] LABS: Add Urine Microscopic? NO; Appearance Urine Clear (Clear); Bilirubin Urine Negative (Negative); Blood Urine Negative (Negative); Color Urine Yellow (Yellow); Glucose Urine UA Negative (Negative); Ketones Urine Negative (Negative); Leukocyte Esterase Ur Negative LEU/UL (Negative); Nitrate Urine Negative (Negative); Protein Urine Negative (Negative); Specific Grav Ur 1.015 (1.001-1.035); Urobilinogen Urine 0.2 mg/dL (<2.0)
[2024-07-11 19:09] LABS: Troponin I < 0.012 ng/mL (0.000-0.034)
[2024-07-11 19:47] VITALS: BP 165/68; PULSE 86; RESP 14; O2SAT 99
[2024-07-11 19:52] LABS: Magnesium 1.8 mg/dL (1.6-2.3)
--- NOTE | 2024-07-11 20:27 | PM.IMHP ---
H&P: HPI History of Present Illness Date/Time: 07/11/24 20:27 Chief Complaint: Generalized weakness Narrative: this is an 78-year-old male with past medical history significant for dyslipidemia, Shireen she a, peripheral neuropathy, hypertension, benign prostatic hyperplasia. Patient presents to the emergency room after having several days of diarrhea, incontinence, generalized weakness. Preliminary workup was significant for creatinine of 2.[address] of abdomen and pelvis was significant for sigmoid and rectal colitis, urinalysis was clean. Patient has been placed in observation for further evaluation management and treatment. EXAMINATION: CT abdomen pelvis wo con DATE: 07/11/2024 18:09 INDICATION: diarrhea x 10 days TECHNIQUE: Computed tomography (CT) of the abdomen and pelvis was performed without intravenous contrast. Automated exposure control and iterative reconstruction technique were employed. The dose-length product was 992.01 mGy-cm. COMPARISON: CT cap 05/24/2019. FINDINGS: Lower thorax: Coronary artery and aortic valve calcifications. Mild peripheral reticulation in the lower lungs, may represent chronic interstitial or senescent change. Liver: Normal. Biliary/Gallbladder: Gallbladder is normal. No bile duct dilation. Pancreas: No mass or duct dilation. Spleen: Normal. Adrenals:No mass. Kidneys: Simple left upper pole cyst. 13 mm indeterminate density exophytic left midpole lesion, unchanged in size or morphology, likely proteinaceous or hemorrhagic cyst. Bilateral perinephric stranding. Multiple nonobstructing bilateral calculi. GI tract: No small or large bowel dilation. Mild wall thickening of the distal sigmoid and rectum. Normal appendix. Mesentery/Peritoneum: No ascites, mass, or free air. Retroperitoneum: No mass. Atherosclerotic abdominal aortic and/or arterial calcifications. Pelvis: Moderately distended urinary bladder with wall thickening and mild stranding. Prostatomegaly with calcification. Soft Tissues: Small uncomplicated left and moderate right fat-containing umbilical hernias. Small uncomplicated umbilical hernia containing fat. Bones: No acute osseous finding. Uncomplicated appearing fusion hardware spanning L1-L5. Interbody devices at L3-4 and L4-5. L1 hemangioma. IMPRESSION: Mild distal sigmoid and rectal wall thickening may reflect a component of colitis in the appropriate context. Cystitis versus bladder wall thickening from chronic outlet obstruction. Review of Systems Review of Systems: diarrhea, generalized weakness, incontinence PMFSH Past Medical History Medical History Central spinal stenosis Cervical stenosis of spine Closed fracture of one rib of right side Constipation Deficiency of other specified B group vitamins (05/20/19) Dysuria Dysuria Hip pain History of fall Hyperglycemia Knee pain Muscle spasms of both lower extremities Myelomalacia of cervical cord Patient had no falls in past year Radiculopathy Testicular swelling Vitamin B 12 deficiency Vitamin D deficiency Surgical History Surgical History H/O Spinal surgery Family History Family History Mother Patient's mother is , Onset Age: 101 Father Family history of cardiovascular disease, Onset Age: 66 Acute myocardial infarction Sibling Family history of Parkinson's disease Social History Social History (Updated 05/23/24 @ 15:43 by NEETU Tan) Smoking status: Former smoker Second hand tobacco smoke exposure: Yes Alcohol intake: current Drinks per week: 2 Substance use: never Substance use type: does not use Do You Feel Safe in your Home?: Yes Lack of Transportation: No Lack of Food: Never True Current Housing: I Have Housing Concerned About Futu
[2024-07-11 20:43] LABS: CRP 0.8 mg/dL (<1.0)
--- NOTE | 2024-07-11 21:35 | ADMGEN ---
This patient, Max Stone, was admitted to Medical Room 247-. Patient/family oriented to hospital policies and general routines including ID bracelet, bed and alarms, visiting hours, pain management, procedures, bathroom and other care routines, personal items, smoking policy, room service/diet, and visiting hours. Information on how to activate the Rapid Response Team has been discussed. Patient/Family are encouraged to report perceived risks to care and to ask questions if they do not understand what they are told or what they should do.
[2024-07-11 22:00] VITALS: BP 183/80; PULSE 92; RESP 20; TEMP 36.5; O2SAT 91
[2024-07-11] MEDS: SODIUM CHLORIDE 0.9% IV 1,000 ML 125 ML IV CONT (22:03)
[2024-07-12 05:44] VITALS: BP 162/76; PULSE 92; RESP 20; TEMP 36.5; O2SAT 95
[2024-07-12] MEDS: SODIUM CHLORIDE 0.9% IV 1,000 ML 125 ML IV CONT ×2 (05:53→20:59)
--- NOTE | 2024-07-12 08:05 | PM.IMPN ---
Progress Note: A&P Assessment and Plan (1) RIVER (acute kidney injury): Code(s): N17.9 - Acute kidney failure, unspecified Status: Acute Assessment and Plan: Likely to be pre renal azotemia from dehydration 2/2 diarrhea. Creatinine 2.3 on arrival. Baseline Cr is 0.7-0.8. Sodium 134 Holding home blood pressure medications renal ultrasound shows 9 mm nonobstructing renal stone Encourage PO fluids received 1 L of NS in emergency room. NS at 65 ml per hour (2) Diarrhea: Code(s): R19.7 - Diarrhea, unspecified Status: Acute Assessment and Plan: CT abdomen and pelvis shows mild distal sigmoid and rectal wall thickening which may reflect colitis. There is also cystitis versus bladder wall thickening from chronic outlet obstruction. C-diff and stool studies ordered COVID testing ordered If c-diff negative can consider Imodium Plan DVT prophylaxis: Lovenox Glycemic control: na Code Status: Full Code Disposition: 78-year-old gentleman who presents with diarrhea and generalized weakness. He is found to be dehydrated with a new RIVER. CT abdomen pelvis showed possible colitis in appropriate setting. He is receiving IV hydration and conservative management for his diarrhea. Medication reconciliation obtained via the following: Nurse completed on admission The file time of this note does not necessarily represent the time the patient was seen. Subjective Date/time seen: 07/12/24 08:05 Interval history: 78-year-old male who presents with complaints of generalized weakness and diarrhea. He has a past medical history significant for dyslipidemia and cervical stenosis of the spine. 07/12: Patient is seen after his ultrasound. He is up in a chair in no acute distress. He says his diarrhea has slowed down. Review of Systems Review of Systems: diarrhea, generalized weakness, incontinence All systems reviewed & are unremarkable except as noted in HPI and below Exam Narrative: General: well appearing, appears stated age. HEENT: normocephalic, atraumatic. Mucous membranes moist. EOMI, PERRLA, bilateral sclera anicteric, no conjunctival injection. Neck supple without JVD, lymphadenopathy, or bruit. Respiratory: clear to auscultation bilaterally. No rales/rhonic/wheezes. Cardiovascular: Regular rate and rhythm, normal S1-S2 upon auscultation. No murmurs, rubs, or clicks. PMI is nondisplaced, capillary refill less than 3 second. Abdomen: Soft, round, no pulsatile masses, nondistended and nontender. No rebound, no guarding. No CVA tenderness, no hepatosplenomegaly. Bowel sounds present to all four quadrants. No high pitch or tinkling sounds, resonant to percussion. Extremities: No cyanosis, clubbing, or edema present. Pulses are palpable 2/2. Active ROM to all four extremities. Neuro: Alert and orientated x 4. PERRLA. Cranial nerves 2-12 intact without focal deficit. Skin: Warm, dry, and intact, without rash, erythema, or lesion. Lines: Incisions: Psych: pleasant, cooperative, normal speech, normal affect, no hallucinations, no dysarthria Objective Data Vital Signs Vital Signs: Vital Signs - 24 hr 07/11/24 16:04 07/11/24 16:14 07/11/24 18:23 Temperature 97.7 F Pulse Rate 92 77 Respiratory Rate 16 16 Blood Pressure 95/52 L 84/47 L 136/64 Pulse Oximetry 93 96 Oxygen Delivery 07/11/24 19:47 07/11/24 21:39 07/11/24 22:00 Temperature 97.7 F Pulse Rate 86 92 Respiratory Rate 14 20 Blood Pressure 165/68 H 183/80 H Pulse Oximetry 99 91 Oxygen Delivery Room Air 07/12/24 05:44 Temperature 97.7 F Pulse Rate 92 Respiratory Rate 20 Blood Pressure 162/76 H Pulse Oximetry 95 Oxygen Delivery Intake/Output Intake/Output: Intake & Output 07/09/24 07/10/24 07/11/24 07/12/24 23:59 23:59 23:59 23:59 Intake Total 1000 979.
[2024-07-12] MEDS: TAMSULOSIN HCL 0.4 MG CAPSULE BY MOUTH (08:17)
[2024-07-12] MEDS: FOLIC ACID 1 MG TABLET PO (08:17)
[2024-07-12] MEDS: GABAPENTIN 300 MG CAPSULE PO (08:17)
[2024-07-12 09:13] LABS: Alanine Aminotransferase 15 U/L (6-50); Albumin Level 3.7 g/dL (3.5-5.1); Alkaline Phosphatase 56 U/L (38-126); Anion Gap 8 mmol/L (4-12); Aspartate Amino Transferase 22 U/L (17-59); Bilirubin,Total 0.8 mg/dL (0.2-1.3); Blood Urea Nitrogen 27 mg/dL (9-20); Calcium 8.5 mg/dL (8.4-10.2); Carbon Dioxide 24 mmol/L (22-30); Chloride 107 mmol/L (98-107); Estimated CRCL calculation 41 ml/min; Estimated Glomerular Filt Rate 45; Glucose 106 mg/dL (65-110); Potassium 4.1 mmol/L (3.4-5.0); Sodium 139 mmol/L (137-145)
[2024-07-12 09:26] LABS: Basophils Percent Auto 0.4 % (0.2-1.2); Eosinophils Absolute Auto 0.1 K/mm3 (0-0.3); Eosinophils Percent Auto 2.5 % (0-4.4); Hematocrit 38.2 % (42.0-52.0); Hemoglobin 12.3 g/dL (14.0-18.0); Immature Granulocyte Absolute 0.02 K/mm3 (0.00-0.031); Immature Granulocyte Percent A 0.4 % (0-0.5); Lymphocytes Absolute Auto 1.07 K/mm3 (0.9-3.2); Lymphocytes Percent Auto 22.2 % (18.3-44.2); Mean Corpuscular HGB Conc 32.2 g/dl (32-36); Mean Corpuscular Hemoglobin 31.8 pg (26-34); Mean Corpuscular Volume 98.7 fl (80-100); Mean Platelet Volume 10.3 fl (7.4-10.4); Monocytes Absolute Auto 0.5 K/mm3 (0.1-0.6); Monocytes Percent Auto 10.2 % (2.6-8.5); Neutrophils Absolute Auto 3.1 K/mm3 (1.3-6.7); Neutrophils Percent Auto 64.3 % (45.5-73.1); Platelet Count Result 166 k/mm3 (150-375); Red Blood Count 3.87 M/mm3 (4.6-6.20); Red Cell Distribution Width 13.3 % (11.5-14.5); White Blood Count 4.8 K/mm3 (4.5-10.0)
[2024-07-12] MEDS: ENOXAPARIN 30 MG/0.3 ML SYRINGE SUB-Q (11:49)
[2024-07-12 13:28] LABS: Influenza A QL RT-PCR Negative (Negative); Influenza B QL RT-PCR Negative (Negative); RSV RNA, RT-PCR Negative (Negative); SARS-CoV-2 RNA PCR Negative (Negative)
[2024-07-12 14:00] VITALS: BP 172/68; PULSE 77; RESP 18; TEMP 36.6; O2SAT 98
[2024-07-12 19:11] LABS: Toxigenic C. Diff NEGATIVE (NEGATIVE)
[2024-07-12 20:00] VITALS: PULSE 90; RESP 18; O2SAT 99
[2024-07-12 20:09] VITALS: PULSE 90; RESP 18; TEMP 36.8; O2SAT 99
[2024-07-12] MEDS: GABAPENTIN 300 MG CAPSULE 600 MG PO (20:58)
[2024-07-12] MEDS: ACETAMINOPHEN 500 MG TABLET 1000 MG PO (20:58)
[2024-07-12] MEDS: LOSARTAN POTASSIUM 25 MG TABLET PO (20:59)
[2024-07-12 22:16] VITALS: BP 180/77
[2024-07-13 05:50] VITALS: BP 188/75; PULSE 81; RESP 16; TEMP 36.5; O2SAT 94
--- NOTE | 2024-07-13 05:50 | PC.NURSE ---
this RN attempted to call the provider about pt's elevated BP
--- NOTE | 2024-07-13 08:38 | PM.IMPN ---
Progress Note: A&P Assessment and Plan (1) RIVER (acute kidney injury): Code(s): N17.9 - Acute kidney failure, unspecified Status: Acute Assessment and Plan: Likely to be pre renal azotemia from dehydration 2/2 diarrhea. Creatinine 2.3 on arrival. Baseline Cr is 0.7-0.8. Sodium 134 Holding home blood pressure medications renal ultrasound shows 9 mm nonobstructing renal stone Encourage PO fluids received 1 L of NS in emergency room. NS at 65 ml per hour (2) Diarrhea: Code(s): R19.7 - Diarrhea, unspecified Status: Acute Assessment and Plan: CT abdomen and pelvis shows mild distal sigmoid and rectal wall thickening which may reflect colitis. There is also cystitis versus bladder wall thickening from chronic outlet obstruction. C-diff and stool studies ordered COVID testing ordered If c-diff negative can consider Imodium Plan DVT prophylaxis: Lovenox Glycemic control: na Code Status: Full Code Disposition: 78-year-old gentleman who presents with diarrhea and generalized weakness. He is found to be dehydrated with a new RIVER. CT abdomen pelvis showed possible colitis in appropriate setting. He is receiving IV hydration and conservative management for his diarrhea. Medication reconciliation obtained via the following: Nurse completed on admission The file time of this note does not necessarily represent the time the patient was seen. Subjective Date/time seen: 07/13/24 08:38 Interval history: 78-year-old male who presents with complaints of generalized weakness and diarrhea. He has a past medical history significant for dyslipidemia and cervical stenosis of the spine. 07/12: Patient is seen after his ultrasound. He is up in a chair in no acute distress. He says his diarrhea has slowed down. 07/13- assuming care. pt is seen and examined. Review of Systems Review of Systems: diarrhea, generalized weakness, incontinence All systems reviewed & are unremarkable except as noted in HPI and below Exam Narrative: General: well appearing, appears stated age. HEENT: normocephalic, atraumatic. Mucous membranes moist. EOMI, PERRLA, bilateral sclera anicteric, no conjunctival injection. Neck supple without JVD, lymphadenopathy, or bruit. Respiratory: clear to auscultation bilaterally. No rales/rhonic/wheezes. Cardiovascular: Regular rate and rhythm, normal S1-S2 upon auscultation. No murmurs, rubs, or clicks. PMI is nondisplaced, capillary refill less than 3 second. Abdomen: Soft, round, no pulsatile masses, nondistended and nontender. No rebound, no guarding. No CVA tenderness, no hepatosplenomegaly. Bowel sounds present to all four quadrants. No high pitch or tinkling sounds, resonant to percussion. Extremities: No cyanosis, clubbing, or edema present. Pulses are palpable 2/2. Active ROM to all four extremities. Neuro: Alert and orientated x 4. PERRLA. Cranial nerves 2-12 intact without focal deficit. Skin: Warm, dry, and intact, without rash, erythema, or lesion. Lines: Incisions: Psych: pleasant, cooperative, normal speech, normal affect, no hallucinations, no dysarthria Const: General: comfortable, no acute distress, well developed, alert, awake and overweight Nutritional Appearance: overweight Orientation/consciousness: patient oriented x3 HENMT: Head: normal to inspection, normocephalic and atraumatic Ears: hearing grossly normal bilaterally Face/Nose/Sinus: normal facial exam Face and sinus: normal facial exam Eyes: General: appearance normal, both eyes and all related structures Pupils: Equal, round and reactive pupils present EOM: EOMs intact bilaterally Neck: Neck: full ROM, no lymphadenopathy and no JVD Thyroid: thyroid normal Lymphatic: no lymphadenopathy noted Resp: Effort & Inspection: normal respiratory effort and able to spe
[2024-07-13] MEDS: TAMSULOSIN HCL 0.4 MG CAPSULE BY MOUTH (09:02)
[2024-07-13] MEDS: FOLIC ACID 1 MG TABLET PO (09:02)
[2024-07-13] MEDS: GABAPENTIN 300 MG CAPSULE PO (09:02)
[2024-07-13] MEDS: ENOXAPARIN 40 MG/0.4 ML SYRINGE SUB-Q (09:03)
[2024-07-13] MEDS: LOSARTAN POTASSIUM 100 MG TABLET PO (10:00)
--- NOTE | 2024-07-13 14:22 | PM.DS ---
DS: Admitting Diagnosis Discharge Date 07/13 Admitting Diagnosis diarrhea DS: Discharge Diagnosis Discharge Diagnosis (1) RIVER (acute kidney injury): Code(s): N17.9 - Acute kidney failure, unspecified Status: Acute Assessment and Plan: Likely to be pre renal azotemia from dehydration 2/2 diarrhea. Creatinine 2.3 on arrival. Baseline Cr is 0.7-0.8. Sodium 134 Holding home blood pressure medications renal ultrasound shows 9 mm nonobstructing renal stone Encourage PO fluids received 1 L of NS in emergency room. NS at 65 ml per hour (2) Diarrhea: Qualifiers: Diarrhea type: unspecified type Qualified Code(s): R19.7 - Diarrhea, unspecified Code(s): R19.7 - Diarrhea, unspecified Status: Acute Assessment and Plan: CT abdomen and pelvis shows mild distal sigmoid and rectal wall thickening which may reflect colitis. There is also cystitis versus bladder wall thickening from chronic outlet obstruction. C-diff and stool studies ordered COVID testing ordered If c-diff negative can consider Imodium DS: Summary Hospital Course Hospital Course: 78-year-old male who presents with complaints of generalized weakness and diarrhea. He has a past medical history significant for dyslipidemia and cervical stenosis of the spine. 07/12: Patient is seen after his ultrasound. He is up in a chair in no acute distress. He says his diarrhea has slowed down. 07/13- assuming care. pt is seen and examined. His diarrhea is improved and he is feeling well. Wants top go home. Discussed that he needs to f/u with PCP for a f/u on cr/bun Status at Discharge Functional status at discharge: independent ambulation Overall status at discharge: patient is progressing back to baseline Time Spent with Patient Time attestation: Total time spent providing and/or coordinating discharge services: Time spent: Greater than 30 minutes Exam Const: General: comfortable Resp: Effort & Inspection: normal respiratory effort Auscultation: clear to auscultation bilaterally Cardio: Rate: regular rate Rhythm: regular rhythm Skin: General skin exam: normal color Neuro: General: gait normal Motor exam (neuro): 5/5 motor strength present throughout Sensory Exam: normal sensation DS: Data Data Completed and Pending Completed studies during hospitalization: cat scan abd/pelvis, renal ultrasounds, [place] xrays Labs on day of discharge: Labs from last 24 hours 07/12/24 17:33 C. difficile (PCR) Negative Discharge Plan Discharge Discharging Clinician: Sun Dumont Patient Disposition: Home, Self-Care Activity: may shower Diet: regular Discharge Instructions: Your admitted with complaints of diarrhea and found to be dehydrated. We treated you with IV fluids. Your renal function improved after hydration. It is suspected that your diarrhea was secondary to a viral gastroenteritis. He did not have of white blood cell count, your diarrhea did not contain blood, and you are not having abdominal pain or cramping. C diff testing was negative You are safe to be discharged home with follow-up with your primary care provider. Please f/u to get yiur kidney function rechecked. Please monitor for fever, chills, increased abdominal pain, worsening diarrhea or stools with presence of blood. Patient Instructions: Antibiotic Form, Dehydration (DC), Gastroenteritis (DC) Stand Alone Forms: General Discharge Information Follow-up/Referrals: Tee Gonzalez MD [Primary Care Provider] - Discharge Medications: Continued doxycycline hyclate 20 mg tablet 40 mg PO BID gabapentin 300 mg capsule 600 mg PO HS atorvastatin 40 mg tablet 40 mg PO DAILY Rx Instructions: TAKE 1 TABLET BY MOUTH EVERY DAY gabapentin 300 mg capsule 300 mg PO QAM losartan-hydrochlorothiazide 100-12.5 mg tablet 1 tablet PO DAILY Rx Instructions:
== END 2024-07-13 14:55 | disposition home or self-care (01) ==
LOC: ANHED 20:30 → ANH2MED 20:57
PROVIDERS: Physician Assistant; Admitting Provider Internal Medicine; Emergency Provider Registered Nurse; PCP Emergency Medicine; Visit Provider Nurse Practitioner Acute Care
DX: N17.9 Acute kidney failure, unspecified (principal); E86.0 Dehydration; R19.7 Diarrhea, unspecified; I35.0 Nonrheumatic aortic (valve) stenosis; M54.16 Radiculopathy, lumbar region; R53.1 Weakness; E55.9 Vitamin D deficiency, unspecified; E78.5 Hyperlipidemia, unspecified; G62.9 Polyneuropathy, unspecified; I10 Essential (primary) hypertension; N40.0 Benign prostatic hyperplasia without lower urinary tract symptoms; L71.9 Rosacea, unspecified; Z87.891 Personal history of nicotine dependence; Z20.822 Contact with and (suspected) exposure to COVID-19
CPT/HCPCS: 36415; 74176; 76775; 80053; 81003; 83690; 83735; 84484; 85025; 85610; 85730; 86140; 87045; 87427; 87449; 87493; 87637; 96360; 96361; 96372; 99285; A9270; G0378; J1650; J7030

== ENCOUNTER 2024-10-19 01:41 | Day surgery (SDC) | payer OTHER, SELFPAY ==
[2024-10-10 10:24] VITALS: BMI 30.7
[2024-10-19 13:22] VITALS: BP 180/90; PULSE 92; RESP 20; TEMP 36.7; O2SAT 97
[2024-10-19] MEDS: LACTATED RINGERS 1,000 ML 150 ML IV CONT (13:24)
--- NOTE | 2024-10-19 14:17 | PM.HPGS ---
History of Present Illness History of Present Illness Consent: Risks, benefits, and alternatives have been discussed and questions answered. Patient agrees to proceed with procedure. Chief complaint: anemia, diarrhea, noninfective gastroenteritis and Narrative: Max Stone is a 79 year old male here for egd and colonoscopy (last one more than 10 years ago), he has alternating constipation and diarrhea, also noted mild anemia hgb 12 but no blood in stool per patient. Review of Systems Review of Systems: All systems reviewed & are unremarkable except as noted in HPI and below PMFSH Past Medical History Medical History (Updated 10/19/24 @ 14:19 by Carlos Oconnor MD) Alternating constipation and diarrhea Constipation Closed fracture of one rib of right side Hyperglycemia Vitamin D deficiency Patient had no falls in past year Myelomalacia of cervical cord Muscle spasms of both lower extremities History of fall Deficiency of other specified B group vitamins (05/20/19) Cervical stenosis of spine Dysuria Dysuria Testicular swelling Central spinal stenosis Vitamin B 12 deficiency Radiculopathy Knee pain Hip pain Surgical History Surgical History H/O Spinal surgery Family History Family History Mother Patient's mother is , Onset Age: 101 Father Family history of cardiovascular disease, Onset Age: 66 Acute myocardial infarction Sibling Family history of Parkinson's disease Social History Social History (Updated 09/16/24 @ 09:52 by Lelia Allred [facility]) Smoking status: Never smoker Second hand tobacco smoke exposure: Yes Alcohol intake: current Drinks per week: 2 Substance use: never Substance use type: does not use Current Housing: Decline to Answer Concerned About Future Housing: Decline to Answer Difficulty Paying Gas/Electric Bills: Decline to Answer Difficulty Paying for Meds: Decline to Answer Currently Unemployed: Decline to Answer Education: Decline to Answer Difficulty w/ Childcare or Family Care: Decline to Answer Living arrangements: with family Occupation/Education: retired Additional occupation/education comments: [employer] Gender identity (if verbalized by the patient): Male Spiritual care concerns: No Meds Home Medications and Allergies Home Medications ?Medication ?Instructions ?Recorded ?Confirmed ?Type calcium 600 mg (as 1 cap PO DAILY 12/16/19 10/19/24 History carbonate)-vitamin D3 5 mcg (200 unit) capsule (Calcium 600 + D(3)) calcium polycarbophil 625 mg 625 mg PO DAILY 12/16/19 10/19/24 History tablet (FiberCon) folic acid 1 mg tablet 1 mg PO DAILY 12/16/19 10/19/24 History multivitamin 1 tablet PO DAILY 12/16/19 10/19/24 History tamsulosin 0.4 mg capsule See Rx Instructions .Route 06/23/24 10/19/24 Rx .COMPLEX #90 caps doxycycline hyclate 20 mg tablet 40 mg PO BID 07/09/24 10/19/24 History acetaminophen 500 mg tablet 1,000 mg PO QHS 07/11/24 10/19/24 History atorvastatin 40 mg tablet 40 mg PO DAILY 07/11/24 10/19/24 History cholecalciferol (vitamin D3) 50 50 mcg PO BID 07/11/24 10/19/24 History mcg (2,000 unit) tablet gabapentin 300 mg capsule 300 mg PO QAM 07/11/24 10/19/24 History gabapentin 300 mg capsule 600 mg PO HS 07/11/24 10/19/24 History omega 5-uxx-ynz-fish oil 100 1 cap PO BID 07/11/24 10/19/24 History mg-160 mg-1,000 mg capsule (Fish Oil) losartan 50 mg tablet 50 mg PO DAILY #90 tabs 07/19/24 10/19/24 Rx omeprazole 40 mg capsule,delayed 40 mg PO DAILY #30 caps 09/09/24 10/19/24 Rx release sildenafil 100 mg tablet See Rx Instructions .Route 09/09/24 10/10/24 Rx .COMPLEX #6 tabs furosemide 20 mg tablet (Lasix) 20 mg PO .COMPLEX PRN edema #30 10/06/24 10/19/24 Rx tabs Allergies Allergy/AdvReac Type Severity Reaction Status Date / Time No Known Allergies Allergy Verified 10/19/24 13:19 Vital Signs Vital Signs - 24 hr 10/19/24 13:22 Temperature 98.0 F Pulse Rate 92 Respiratory Rate 20 Blood Pressure 180/90 H Pulse Oximetry 97 Oxygen Delivery Room Air Exam Const: General: comfortable and no acute distress HENMT: Face/Nose/Sinus: Normal nares present Eyes: General: appearance normal, both eyes and all related structures Neck: Neck: no JVD Resp: Auscultation: clear to auscultation bilaterally Cardio: Rate: regular rate Rhythm: regular rhythm GI: Inspection: non-distended GI Palp: Yes Soft to palpation Skin: General skin exam: normal color Neuro: General: gait normal Speech: normal speech Extrem: General: normal to inspection Psych: Mental Status: mental status grossly normal Assessment and Plan Assessment and plan (1) Alternating constipation and diarrhea: Code(s): R19.8 - Other specified symptoms and signs involving the digestive system and abdomen Status: Acute (2) Anemia: Qualifiers: Anemia type: unspecified type Qualified Code(s): D64.9 - Anemia, unspecified Code(s): D64.9 - Anemia, unspecified Status: Acute Assessment and Plan: egd and colonoscopy
--- NOTE | 2024-10-19 15:23 | P.PNAN_ITS ---
Anes - Initial Pre Proc Eval Procedure: Operation Date: 10/19/24 14:30 Proposed Procedures p Esophagogastroduodenoscopy & Colonoscopy - Carlos Oconnor MD Date/Time: 10/19/24 15:23 Surgeon: Carlos Oconnor MD Pre Op Diagnosis: anemia, diarrhea, noninfective gastroenteritis and Patient Data Age: 79 Gender: M Height: 1.78 m Weight: 92 kg Last Vital Signs Temp 36.7 C 10/19/24 13:22 Pulse 92 10/19/24 13:22 Resp 20 10/19/24 13:22 BP 180/90 H 10/19/24 13:22 Pulse Ox 97 10/19/24 13:22 O2 Del Method Room Air 10/19/24 13:22 Allergies Allergy/AdvReac Type Severity Reaction Status Date / Time No Known Allergies Allergy Verified 10/19/24 13:19 Home Medications ?Medication ?Instructions ?Recorded ?Confirmed ?Type calcium 600 mg (as 1 cap PO DAILY 12/16/19 10/19/24 History carbonate)-vitamin D3 5 mcg (200 unit) capsule (Calcium 600 + D(3)) calcium polycarbophil 625 mg 625 mg PO DAILY 12/16/19 10/19/24 History tablet (FiberCon) folic acid 1 mg tablet 1 mg PO DAILY 12/16/19 10/19/24 History multivitamin 1 tablet PO DAILY 12/16/19 10/19/24 History tamsulosin 0.4 mg capsule See Rx Instructions .Route 06/23/24 10/19/24 Rx .COMPLEX #90 caps doxycycline hyclate 20 mg tablet 40 mg PO BID 07/09/24 10/19/24 History acetaminophen 500 mg tablet 1,000 mg PO QHS 07/11/24 10/19/24 History atorvastatin 40 mg tablet 40 mg PO DAILY 07/11/24 10/19/24 History cholecalciferol (vitamin D3) 50 50 mcg PO BID 07/11/24 10/19/24 History mcg (2,000 unit) tablet gabapentin 300 mg capsule 300 mg PO QAM 07/11/24 10/19/24 History gabapentin 300 mg capsule 600 mg PO HS 07/11/24 10/19/24 History omega 3-nly-iej-fish oil 100 1 cap PO BID 07/11/24 10/19/24 History mg-160 mg-1,000 mg capsule (Fish Oil) losartan 50 mg tablet 50 mg PO DAILY #90 tabs 07/19/24 10/19/24 Rx omeprazole 40 mg capsule,delayed 40 mg PO DAILY #30 caps 09/09/24 10/19/24 Rx release sildenafil 100 mg tablet See Rx Instructions .Route 09/09/24 10/10/24 Rx .COMPLEX #6 tabs furosemide 20 mg tablet (Lasix) 20 mg PO .COMPLEX PRN edema #30 10/06/24 10/19/24 Rx tabs Patient hx anesthesia problems: none Family hx anesthesia problems: none Results Review: All pre-operative results and documents have been reviewed as part of the pre- operative evaluation. [facility] Past Medical History Medical History Alternating constipation and diarrhea Constipation Closed fracture of one rib of right side Hyperglycemia Vitamin D deficiency Patient had no falls in past year Myelomalacia of cervical cord Muscle spasms of both lower extremities History of fall Deficiency of other specified B group vitamins (05/20/19) Cervical stenosis of spine Dysuria Dysuria Testicular swelling Central spinal stenosis Vitamin B 12 deficiency Radiculopathy Knee pain Hip pain Surgical History Surgical History H/O Spinal surgery Family History Family History Mother Patient's mother is , Onset Age: 101 Father Family history of cardiovascular disease, Onset Age: 66 Acute myocardial infarction Sibling Family history of Parkinson's disease Social History Social History Smoking status: Never smoker Second hand tobacco smoke exposure: Yes Alcohol intake: current Drinks per week: 2 Substance use: never Substance use type: does not use Current Housing: Decline to Answer Concerned About Future Housing: Decline to Answer Difficulty Paying Gas/Electric Bills: Decline to Answer Difficulty Paying for Meds: Decline to Answer Currently Unemployed: Decline to Answer Education: Decline to Answer Difficulty w/ Childcare or Family Care: Decline to Answer Living arrangements: with family Occupation/Education: retired Additional occupation/education comments: [employer] Gender identity (if verbalized by the patient): Male Spiritual care concerns: No Anes - Eval Final PreProcedure Day of Procedure 10/19/24 15:23 Patient weight: overweight Heart: regular rate and rhythm Lungs: decreased breath sounds Airway: Mallampati scale class II Neurological: alert and oriented Last oral intake: >/= 8 hours ASA classification: III Emergent: no Anesthetic plan: proceed Anesthesia type and monitoring: general GIVS and standard monitoring Results Review: All pre-operative results and documents have been reviewed as part of the pre- operative evaluation. Informed Consent: The patient's anesthetic plan and its attendant risks and benefits were discussed with the patient/family/POA. Questions were solicited and answers provided to the satisfaction of the patient/family/POA.
--- NOTE | 2024-10-19 15:41 | SUR.OPER ---
EGD ended at 1541 and colonoscopy started at 1541
[2024-10-19 15:50] VITALS: BP 96/57; PULSE 75; RESP 18; O2SAT 97
[2024-10-19 16:00] VITALS: BP 120/64; PULSE 81; RESP 21; O2SAT 99
[2024-10-19 16:10] VITALS: BP 151/82; PULSE 73; RESP 25; O2SAT 100
== END 2024-10-19 16:25 | disposition home or self-care (01) ==
PROVIDERS: PCP Emergency Medicine; Referring Provider Nurse Practitioner Family; Visit Provider Internal Medicine Gastroenterology
PROC: 0DJ08ZZ Inspection of Upper Intestinal Tract, Via Natural or Artificial Opening Endoscopic (ICD-10-PCS; CPT 43235; principal; 2024-10-19 14:30)
DX: R19.7 Diarrhea, unspecified (principal); K59.00 Constipation, unspecified; D12.3 Benign neoplasm of transverse colon; K64.8 Other hemorrhoids; K62.89 Other specified diseases of anus and rectum; D64.9 Anemia, unspecified
CPT/HCPCS: 45380; 43239; 88305; J2704; J7120

== ENCOUNTER 2025-04-05 12:37 | Outpatient (CLI) | payer OTHER, SELFPAY ==
--- OUTSIDE RECORDS SUMMARY | 2025-04-05 12:40 | XMS_ITS | Encounter Summary ---
Author Organization [facility] Address 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
--- OUTSIDE RECORDS SUMMARY | 2025-04-05 12:40 | XMS_ITS | Encounter Summary ---
Author Organization [facility] Address [address] [place] [address] Care Team Providers Care Med Peds Name Role Phone Tee Gonzalez MD Primary Care Provider [phone] Encounter Details Date Type Department Care Team (Late st Contact Info) Description 02/15/2008 Outpatient Historical 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
--- OUTSIDE RECORDS SUMMARY | 2025-04-05 12:40 | XMS_ITS | Encounter Summary ---
Author Organization [facility] Address [address] [place] [address] Care Team Providers Care Steeplechase Jockey Name Role Phone Tee Gonzalez MD Primary Care Provider [phone] Encounter Details Date Type Department Care Team (Late st Contact Info) Description 02/15/2008 Outpatient Historical [facility] Internal Medicine 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
--- OUTSIDE RECORDS SUMMARY | 2025-04-05 12:40 | XMS_ITS | Clinical Summary ---
Author Organization [facility] Address [address] [place], [place] [address] Care Team Providers Care Spear Fisher Name Role Phone Tee Gonzalez MD Primary Care Provider [phone] Allergies Active Allergy Reactions Criticality Noted Date Comments No Known Allergies 02/15/2008 Medications atorvastatin (LIPITOR) 20 mg tablet TAKE 1 TABLET BY MOUTH EVERY DAY. 90 Tablet 1 5 Active Additional Information Patient taking differently: 10 mg Oral DAILY AT BEDTIME, TAKE 1 TABLET BY MOUTH EVERY DAY, Informant: Family, Reported on 01/09/2020 metoprolol succinate (TOPROL XL) 25 mg Extended Release 24 hour tablet Take 25 mg by mouth daily . 9 Active folic acid (FOLVITE) 1 mg tablet Take 1 mg by mouth daily. Active CYANOCOBALAMIN, VITAMIN B-12, INJECTION 1,000 mg by Injection route every 7 days. On Active acetaminophen (TYLENOL) 500 mg Capsule Take 1,000 mg by mouth every 6 hours as needed . Active polycarbophil calcium (FIBERCON) 625 mg tablet Take 625 mg by mouth daily at bedtime. Active cholecalciferol, Vitamin D3, (VITAMIN D3) 1,000 unit Capsule Take 1 Tablet by mouth daily . Active calcium carbonate (CALCIUM 500 ORAL) Take 1 Tablet by mouth daily. Active flaxseed oil (OMEGA 3 ORAL) Take 1,000 mg by mouth daily. Active aspirin (ECOTRIN EC) 81 mg Tablet, Delayed Release (E.C.) Take 81 mg by mouth daily. Active multivitamin (DAILY-GINO) tablet Take 1 Tablet by mouth daily. Active ascorbic acid, vitamin C, (VITAMIN C) 500 mg tablet Take 500 mg by mouth daily. Active polyethylene glycol 3350 (MIRALAX) 17 gram/dose Powder Take 17 Grams by mouth 1 time daily as needed Dissolve in 8 ounces of fluid and drink entire liquid . Active sennosides-docus ate sodium (SENNA-S) 8.6-50 mg tablet Take 1 Tablet by mouth 1 time daily as needed for Constipation. 30 Tablet 08/06/2019 3:12 PM CDT 9 Active tiZANidine (ZANAFLEX) 2 mg Tablet Take 1 Tablet (2 mg) by mouth every 8 hours as needed for Spasm. 30 Tablet 08/06/2019 3:12 PM CDT 9 Active DOXYCYCLINE HYCLATE ORAL Take 20 mg by mouth 2 times daily. Active diphenhydrAMINE- acetaminophen (Tylenol PM Extra Strength) 25-500 mg Tablet Take 2 Tablets by mouth daily at bedtime. Active gabapentin (NEURONTIN) 300 mg capsule Take 300 mg by mouth 3 times daily. Active metroNIDAZOLE (METROCREAM) 0.75 % Cream Apply to affected area 2 times daily. rosacea Active calcium carbonate + vitamin D (Calcium with Vitamin D) 600 mg(1,500mg) -400 unit Tablet Take 1 Tablet by mouth daily at bedtime. Active cyanocobalamin 1,000 mcg Tablet Take 1,000 mcg by mouth daily. chewable Active OTHER Lidocaine/Isovu e/Betamethasone Injection to the L5 S1 01/10/2020 Active oxyCODONE (ROXICODONE) 5 mg tabletIndication s:S/P lumbar spinal fusion,Spinal stenosis of lumbar region, unspecified whether neurogenic claudication present,Normocyt ic anemia Take 1-2 tablets (5-10 mg) by mouth every 4 hours as needed for severe pain. Max Daily Amount: 60 mg 30 Tablet 04/28/2020 5:14 PM CDT 0 Active naloxone (NARCAN) 4 mg/spray [place], Non-Aerosol EMERGENCY USE ONLY: Administer 1 spray (4 mg) in one nostril one time. May repeat in alternating nostrils every 2-3 min until responsive or EMS arrives. 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 07/15/2019 Benign neoplasm of colon 02/26/2012 Degeneration of cervical intervertebral disc Other malaise and fatigue 07/10/2009 HTN (hypertension), benign 02/15/2008 Other and unspecified hyperlipidemia 02/15/2008 Special screening for malignant neoplasm of pros bangura 02/15/2008 Routine general medical exam ination at a health care facility 02/15/2008 Pure hypercholesterolemia Resolved Problems Problem Noted Date Diagnosed Date Resolved Date Cervical stenosis of spinal canal 08/05/2010 07/24/2011 Need for prophylactic vaccin ation with tetanus toxoid alone 02/15/2008 06/26/2008 Need for prophylactic vaccin ation and inoculation against pertussis alone 02/15/200806/03 Need for prophylactic vaccin ation with combined gavqonswjl-vphffpd-rouswfxbb (DTP) vaccine 02/15/2008 06/26/2008 Immunizations Immunization Administration Dates Next Due (ADACEL/BOOSTRIX)(10 YR UP) TDAP VACCINE, 0.5ML, IM 02/15/2008 (PREVNAR 13)(6 WKS UP) PNEUM OCOCCAL CONJUGATE (PCV13) 0.5 ML, IM 08/05/2019 Influenza Vaccine High Dose 65+ Yrs IM 9 Family History Medical History Relation Name Comments Unknown Daughter Heart Disease Father 65 Unknown Maternal Grandfather Heart Disease Maternal Grandmother Other Mother old age Healthy Other Heart Disease Other High Cholesterol Other Hypertension Other Other Other Unknown Paternal Grandfather Unknown Paternal Grandmother Other Sister 70 parkinsons d is Breast Cancer Neg Hx Cancer Neg Hx Colon Cancer Neg Hx Diabetes Neg Hx Lung Cancer Neg Hx Melanoma Neg Hx Ovarian Cancer Neg Hx Stroke Neg Hx Relation Name Status Comments Daughter Father Maternal Grandfather Maternal Grandmother Mother Other Paternal Grandfather Paternal Grandmother Sister Social History Tobacco Use Types Packs/Day Years Used Date Smoking Tobacco: Passive Smo ke Exposure - Never Smoker Cigarettes Cigars Smokeless Tobacco: Never Comments:very passively; las t cigar 2009 Alcohol Use Standard Drinks/Week Comments Yes 0 (1 standard drink = 0.6 oz pur e alcohol) moderate Sex and Gender Information Value Date Recorded Sex Assigned at Not on file 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 Gender Identity Not on file Sexual Orientation Not on file Occupation Industry Job Start Date Job End Date retired Not on file Not on file Not on file Last Filed Vital Signs Vital Sign Reading Time Taken Comments Blood Pressure 180/96 04/28/2020 8:22 AM CDT Pulse 95 04/28/2020 8:22 AM CDT Temperature 37.7 C (99.9 F) 04/28/2020 8:22 AM CDT Respiratory Rate 16 04/28/2020 8:22 AM CDT Oxygen Saturation 93% 04/28/2020 8:22 AM CDT Inhaled Oxygen Concentration - - Weight 95.3 kg (210 lb) 06/11/2020 10:20 AM CDT Height 177.8 cm (5' 10) 06/11/2020 10:20 AM CDT Body Mass Index 30.13 06/11/2020 10:20 AM CDT Plan of Treatment Health Maintenance Due Date Last Done Comments ZOSTER VACCINE (1 of 2) 1993 COLORECTAL SCREENING 02/25/2017 02/26/2012, 02/26/2012, 01/01/2002 DTAP/TDAP/TD VACCINES (2 - T d or Tdap) 02/14/2018 02/15/2008 RSV VACCINE (60+ or ) (1 - 1-dose 75+ series) 2018 PNEUMOCOCCAL VACCINE 50+ YEA RS (2 of 2 - PPSV23) 08/05/2020 08/05/2019 INFLUENZA VACCINE (#1) 2024 08/05/2019 Medical Devices Implanted Type Area Loom Changer Device Identifier Shelf Expiration Date Model / Serial / Lot Hemostatic Surgiflo 8ml W/Thrombin 2994 - [id number] Implanted:Qty : 1 on 08/03/2019 by Shad Quick MD at [facility] Hemostatic N/A: Spine Lumbar [employer] 09/01/2020 2994 / / [id number] Description:on field Hemostatic Surgiflo 8ml W/Thrombin 2994 - [id number] Implanted:Qty : 1 on 08/03/2019 by Shad Quick MD at [facility] Hemostatic N/A: Spine Lumbar [employer] 09/01/2020 2994 / / [id number] Description:on field Hemostatic Surgiflo 8ml W/Thrombin 2994 - [id number] Implanted:Qty : 1 on 08/03/2019 by Shad Quick MD at [facility] Hemostatic N/A: Spine Lumbar [employer] 09/01/2020 2994 / / [id number] Description:on field Hemostatic Surgiflo 8ml W/Thrombin 2994 - [id number] Implanted:Qty : 1 on 08/03/2019 by Shad Quick MD at [facility] Hemostatic N/A: Spine Lumbar [employer] 08/01/2020 2994 / / [id number] Description:on field Hemostatic Surgiflo 8ml W/Thrombin 2994 - [id number] Implanted:Qty : 1 on 08/03/2019 by Shad Quick MD at [facility] Hemostatic N/A: Spine Lumbar [employer] 07/02/2020 2994 / / [id number] Hemostatic Surgiflo 8ml W/Thrombin 2994 - [id number] Implanted:Qty : 2 on 04/25/2020 by Shad Quick MD at [facility] Hemostatic N/A: Spine Lumbar [employer] 01/30/2021 2994 / / [id number] Plate Crsslnk Ti 36-38mm [id number] - [id number] Implanted:Qty : 1 on 04/25/2020 by Shad Quick MD at [facility] Plate N/A: Spine Lumbar [employer] [id number] / / Description:Sterilization da te: 04/24/2020 Sterilization load #[id number] Chromaloy Plus Tunde 3.5x90mm Implanted:Qty : 2 on 06/27/2019 by Shad Quick MD at [facility] Tunde N/A: Spine Cervical Posterior [employer] [id number] / STERILIZED DATE 06/21/19 / LOAD #[id number] Description:ENTERED BY RN 08 [id number] Tunde Cdh Spn Ccm Cap 4.78j74jh [id number] - [id number] Implanted:Qty : 2 on 08/03/2019 by Shad Quick MD at [facility] Tunde N/A: Spine Lumbar [employer] [id number] / / Description:75 mm capped tunde x2 load # [id number] sterilized jul 28, 2019 Screw Spn Multi Fredy 4.0x12mm Implanted:Qty : 1 on 06/27/2019 by Shad Quick MD at [facility] Screw N/A: Spine Cervical Posterior [employer] [id number] / STERILIZED DATE 06/21/19 / LOAD #[id number] Description:ENTERED BY RN 08 [id number] Screw Spn Multi Fredy 4.0x22mm Implanted:Qty : 2 on 06/27/2019 by Shad Quick MD at [facility] Screw N/A: Spine Cervical Posterior [employer] [id number] / STERILIZED DATE 06/21/19 / LOAD #[id number] Description:ENTERED BY RN 08 [id number] Set Screw Implanted:Qty : 8 on 06/27/2019 by Shad Quick MD at [facility] Screw N/A: Spine Cervical Posterior [employer] [id number] / STERILIZED DATE 06/21/19 / LOAD #[id number] Description:ENTERED BY RN 08 [id number] REQ#[id number] Screw Spn Multi Fredy 3.5x12mm [id number] - [id number] Implanted:Qty : 5 on 06/27/2019 by Shad Quick MD at [facility] Screw N/A: Spine Cervical Posterior [employer] [id number] / [id number] / [id number] Screw Solera Brii Ma 4.23g72tl [id number] - [id number] Implanted:Qty : 3 on 08/03/2019 by Shad Quick MD at [facility] Screw N/A: Spine Lumbar [employer] [id number] / / Description:load# [id number] Screw Solera Brii Ma 4.39t62qu [id number] - [id number] Implanted:Qty : 1 on 08/03/2019 by Shad Quick MD at [facility] Screw N/A: Spine Lumbar [employer] [id number] / / Description:6.5 X 40 load [id number] sterilized jul 28, 2019 Screw Solera Brii Ma 4.95b37vw [id number] - [id number] Implanted:Qty : 1 on 08/03/2019 by Shad Quick MD at [facility] Screw N/A: Spine Lumbar [employer] [id number] / / Description:5.5x35x 1 load# 92 [id number] sterilized jul 28, 2019 REQ#[id number] Set Screw Solera Perc 4.75mm [id number] - [id number] Implanted:Qty : 6 on 08/03/2019 by Shad Quick MD at [facility] Screw N/A: Spine Lumbar [employer] [id number] / / Description:set screws x6 lo ad # [id number] jul 21, 2019 Screw Voyager 6.5x30mm Implanted:Qty : 1 on 08/03/2019 by Shad Quick MD at [facility] Screw N/A: Spine Lumbar [employer] [id number] / / LOAD# [id number] Description:ITEM ADD MELISA LOAD#[id number] STERILIZED Screw Solera Ma 7.5x40mm [id number] - [id number] Implanted:Qty : 4 on 04/25/2020 by Shad Quick MD at [facility] Screw N/A: Spine Lumbar [employer] [id number] / / Description:Sterilization da te: 04/24/2020 Sterilization load #[id number] REQ#[id number] Screw Solera Breakoff 1205049 - [id number] Implanted:Qty : 8 on 04/25/2020 by Shad Quick MD at [facility] Screw N/A: Spine Lumbar [employer] [id number] / / Description:Sterilization da te: 04/24/2020 Sterilization load #[id number] Space Rise 10d [id number] 10x26 Implanted:Qty : 1 on 08/03/2019 by Shad Quick MD at [facility] Spacer N/A: Spine Lumbar [employer] 193.122 / / Description:ITEM ADD-MELISA Allgrft Magnifuse Pc 9133254 - [id number] Implanted:Qty : 1 on 06/27/2019 by Shad Quick MD at [facility] Tissue N/A: Spine Cervical Posterior [employer] 11/25/2020 [id number] / [id number] / NA Infuse Protein Kit [id number] - [id number] Implanted:Qty : 1 on 08/03/2019 by Shad Quick MD at [facility] N/A: Spine Lumbar [employer] 07/02/2021 [id number] / / [id number] Allograft Magnifuse Sc 9453966 - [id number] Implanted:Qty : 1 on 04/25/2020 by Shad Quick MD at [facility] N/A: Spine Lumbar [employer] 09/13/2021 [id number] / [id number] / Description:REQ [id number] Allograft Magnifuse Pc 1144880 - [id number] Implanted:Qty : 1 on 04/25/2020 by Shad Quick MD at [facility] N/A: Spine Lumbar [employer] [facility] 11/27/2021 [id number] / [id number] / Description:REQ [id number] Space Rise 8x22 9-15mm Implanted:Qty : 1 on 08/03/2019 by Shad Quick MD at [facility] N/A: Spine Lumbar [employer] 193.051 / / Description:ITEM ADD-MELISA REQ#[id number] 150mm Tunde Implanted:Qty : 2 on 04/25/2020 by Shad Quick MD at [facility] N/A: Spine Lumbar [id number] / / Description:Sterilization da te: 04/23/2020 Sterilization load #[id number] Explanted Type Area Loom Changer Device Identifier Shelf Expiration Date Model / Serial / Lot Hemostatic Surgiflo 8ml W/Thrombin 2994 - [id number] Explanted:Qty : 1 on 06/27/2019 by Shad Quick MD at [facility] Hemostatic N/A: Spine Cervical Posterior [employer] 06/01/2020 2994 / / [id number] Description:REQ#[id number] Hemostatic Surgiflo 8ml W/Thrombin 2994 - [id number] Explanted:Qty : 1 on 06/27/2019 at [facility] Hemostatic N/A: Spine Cervical Posterior [employer] 07/02/2020 2994 / / [id number] Insurance [employer] MCR RX MEDIMPACT Member Subscriber Plan / Payer (Ef fective 2019-Present) Name:Max Stone Relation to Subscriber:Not on file Name:Max Stone Subscriber ID:Not on file Payer ID:Not on file Group ID:[id number] Type:RX Medicare Part D Address: [place] Advance Directives For more information, please contact: [phone] * Full Code (Latest Code Status on File) Date Activated Date Inactivated Comments 04/25/2020 1:56 PM 04/28/2020 6:46 PM * Full Code Date Activated Date Inactivated Comments 04/25/2020 6:44 AM 04/25/2020 1:56 PM * Full Code Date Activated Date Inactivated Comments 08/03/2019 3:23 PM 08/06/2019 6:54 PM * Full Code Date Activated Date Inactivated Comments 08/03/2019 7:45 AM 08/03/2019 3:23 PM * Full Code Date Activated Date Inactivated Comments 06/27/2019 7:35 PM 06/30/2019 2:58 PM Care Teams Spear Fisher Relationship Specialty Start Date End Date Tee Gonzalez MD [address] [address] PCP - General Internal Medicine 05/11/19
--- OUTSIDE RECORDS SUMMARY | 2025-04-05 12:40 | XMS_ITS | Encounter Summary ---
Author Organization [facility] Address 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 WEIGHT: 215lbs NURSE NAME: Shruthi Joyce A ALLERGIES: No known drug allergies. MEDICATIONS: Medication list current. CHIEF COMPLAINT Seen for a preventive examination. HISTORY: HISTORY: 401.1-HYPERTENSION ESSENTIAL BENIGN The patient`s weight is the same. The patient is compliant withdiet. The patient`s exercise has increased. The patient denies chest pain, shortness of breath, dyspnea on exertion, pedal edema, or headache. No complications noted from the medication presently being used. Labs will be obtained for this patient. 272.4-HYPERLIPIDEMIA The patient has gained weight. The patient is compliant with the low saturatedfat diet. The patient`s exercise has increased. Currently the patient is off all medication. V70.0-ROUTINE GENERAL MEDICAL EXAMINATION The patient is doing well with no specific complaints noted. The patient is here for a routine examination. No significant complaints noted. CURRENT PROBLEM LIST: 272.4 HYPERLIPIDEMIA 401.1 HYPERTENSION ESSENTIAL BENIGN V70.0 ROUTINE GENERAL MEDICAL EXAMINATION V76.44 SCREEN FOR CA OF PROSTATE CURRENT MEDICATION LIST: LISINOPRIL-HYDROCHLOROTHIAZIDE ORAL TABLET 20-12.5 MG, 1 po qd LIPITOR ORAL TABLET 10 MG, 1 po qd TETRACYCLINE HCL ORAL TABLET 500 MG, 1 po qd as need TRICOR ORAL TABLET 145 MG, 1 po qd CURRENT ALLERGY LIST: NKDA ROS: GENERAL: Normal activity and energy level, no change in appetite. No major weight gain or loss. No malaise, chills, fever, diaphoresis. ALLERGIC/IMMUNOLOGIC: No allergic rhinitis, HAS ENVIRONMENTAL ALLERGIES. EYES: No cataracts, no glaucoma, no macular degeneration, WEARS CORRECTIVE LENSES. ENT: No hearing loss, epistaxis, hoarseness or dysphagia. No sinus congestion. ENDOCRINE: No history of diabetes, no history of thyroid problems. CARDIAC: See HISTORY OF PRESENT ILLNESS, HIGH BLOOD PRESSURE NOTED. RESPIRATORY: No dyspnea, cough, hemoptysis or wheezing. SKIN/BREAST/CHEST: . HEMATOLOGIC/LYMPHATIC: No anemia, easy bruising, bleeding or swollen nodes. : No problems with erections, no testicular problems, NEEDS TO URINATE MORE THAN ONCE PER NIGHT. GI: No abdominal pain, nausea, vomiting, diarrhea, constipation, melena, or hematochezia. NEUROLOGIC: No weakness, dizziness, loss of consciousness, transient ischemic symptoms, or seizures. MUSCULOSKELETAL: No muscle or joint pain, weakness, swelling or inflammation. No restriction of motion, no atrophy or backache. PSYCHIATRIC: No increased nervousness, mood changes or depression. Coping well. PAST MEDICAL HISTORY: MEDICAL: Hypercholesterolemia, hypertension. SURGICAL: No previous surgery. CHILDHOOD DISEASES: Normal childhood diseases. FAMILY HISTORY: GENERAL FAMILY ILLNESS: POSITIVE HISTORY OF HEART DISEASE, no cancer. SOCIAL HISTORY: MARITAL HISTORY: , living with spouse. LIVING WILL: The patient does not have a living will. TOBACCO USE: Has no significant smoking history. 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 ALCOHOL: Drinks a minimal amount of alcohol. CAFFEINE: A moderate amount of caffeinated beverages daily. EXERCISES: The patient exercises minimally. DIET: Follows a weight reduction diet. SAFETY ISSUES: Uses seat belts, has smoke alarms, carbon monoxide alarms. No guns in the home. STRESS ISSUES: Stress at work. PETS IN HOME: The patient has no pets. PHYSICAL EXAMINATION: CONSTITUTIONAL: GENERAL APPEARANCE: Healthy appearing patient in no distress. EYES: CONJUNCTIVAE/LIDS: Conjunctivae and lids appear normal. PUPILS: Pupils equal and normally reactive to light and accommodation. EARS, NOSE, MOUTH AND THROAT: EXTERNAL/EARS AND NOSE: Overall appearance normal with no scars, lesions or masses. EARS: Tympanic membranes shiny without retraction. Canals unremarkable. Hearing grossly normal. NOSE (AND SINUS): No abnormality of the nose or sinuses is noted. NECK/THYROID: Trachea midline. No thyroid enlargement, tenderness, or mass. No supraclavicular or cervical adenopathy. RESPIRATORY: Clear to auscultation and percussion. Normal respiratory effort. CARDIOVASCULAR: CARDIAC: Regular rhythm. No murmurs, rubs, or gallops. ARTERIAL: No aortic bruits. EDEMA/VARICOSITIES OF EXTREMITIES: No edema or varicosities. BREAST/CHEST: Breasts normal to inspection and palpation with no chest deformity. LYMPHATICS: GASTROINTESTINAL: ABDOMEN: Soft, non-tender, without masses. Bowel sounds active. LIVER/SPLEEN/KIDNEY: No hepatosplenomegaly, tenderness or nodularity. Kidneys not palpable. HERNIA: No hernias are present. RECTAL: Rectal exam reveals no masses or hemorrhoids, sphincter tone is normal. STOOL/HEMOCCULT: Stool is hemoccult negative. GENITOURINARY: SCROTUM/CONTENTS: Normal in appearance with no hydrocele, spermatocele, tenderness of cord, or testicular mass. PHALLUS: PROSTATE: Symmetrical and smooth with no nodularity or tenderness. MUSCULOSKELETAL EXAM: DIGITS/NAILS: No clubbing, cyanosis, inflammation, or ischemia. HEAD AND NECK: Normal to inspection and palpation with satisfactory range of motion. Strength adequate with normal stability. SPINE/RIBS/PELVIS: No kyphosis, lordosis, full range of motion. Normal stability, strength and tone. EXTREMITIES: PE/MS/BILAT UPPER EXT No misalignment or tenderness. Full range of motion. Normal stability, strength and tone. BILATERAL LOWER EXTREMITIES: No misalignment or tenderness. Full range of motion. Normal stability,strength and tone. SKIN: SKIN: Warm, dry, no diaphoresis, no significant lesions, irritation, rashes or ulcers. No induration, obvious subcutaneous nodules or tightening. NEUROLOGIC: DEEP TENDON REFLEXES: Deep tendon reflexes 2+/4 and symmetrical. SENSATION: OFFICE PROCEDURES: EKG INTERPRETATION EKG RHYTHM: No ischemic changes noted. ASSESSMENT/PLAN: V70.0-ROUTINE GENERAL MEDICAL EXAMINATION ASSESSMENT: The patient is doing well and no distinct problems were identified on exam. STATUS: Unchanged. V03.7-NEED FOR PROPHYLACTIC VACCINATION AND INOCULATION LAB ORDERS: Order number: [id number] Test Ordered: INJ-TETANUS TOXOID [id number] HEALTH MAINTENANCE: LAST PROSTATE EXAM: wnl. LAST TD: 2007 ADVANCED DIRECTIVES DISCUSSED: yes. LAST DATE COLONOSCOPY: neg. LAST DATE FOBT: neg. LAST FLU VACCINE:refuses TIME PHYSICIAN WITH PATIENT: TOTAL: 30 minutes. TIME PATIENT COUNSELED/CARE COORDINATED: 15 minutes. PREVENTIVE COUNSELING The patient was counseled regarding colorectal cancer screening, prevention of dental and periodontal disease, regular sustained exercise for at least 30 minutes 3-4 times per week, methods to avoid household and recreational injuries, adult immunizations, the importance of completing a living will with medical directives and a health care power of prosecuting attorney, prostate cancer screening, screening procedures and recommended schedule for GI hemoccult testing, colonoscopy, cholesterol, thyroid and diabetes screening, the use of condoms for the prevention of HIV and other sexually transmitted diseases, the proper use of sunscreen and protective clothing, testicular self-examination on a monthly basis. RETURN VISIT : Patient instructed to return in 4 months. Electronically Signed by: Jose Charles MD on Friday, February 15, 2008 Addendum - 02/15/2008 12:35 pm pt was given TDAP injection./concepcion Electronically Signed by: Shruthi Joyce on Friday, February 15, 2008 Addendum - 02/15/2008 01:13 pm [facility] order labs on pt. CBC, CMP, TSH, PSA, UA, LIPID./concepcion Electronically Signed by: Shruthi Joyce on Friday, February 15, 2008 documented in this encounter Plan of Treatment Not on file documented as of this encounter Visit Diagnoses Not on filedocumented in this encounter Care Teams Personal Care Attendant Relationship Specialty Start Date End Date Tee Gonzalez MD [address] [place] [address] PCP - General Internal Medicine 05/11/19 documented as of this encounter
--- OUTSIDE RECORDS SUMMARY | 2025-04-05 12:40 | XMS_ITS | Encounter Summary ---
Author Organization [facility] Address 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
--- OUTSIDE RECORDS SUMMARY | 2025-04-05 12:40 | XMS_ITS | Encounter Summary ---
Author Organization [facility] Address 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 Gender Identity Not on file Sexual Orientation Not on file documented as of this encounter Plan of Treatment Not on file documented as of this encounter Procedures Procedure Name Priority Date/Time Associated Diagnosis Comments URINALYSIS WITH REFLEX CULTURE Routine 02/15/2008 1:53 PM CDT CBC WITH DIFFERENTIAL Routine 02/15/2008 1:53 PM CDT URINALYSIS W/REFLEX MICROSCOPIC Routine 02/15/2008 1:53 PM CDT TSH Routine 02/15/2008 1:53 PM CDT PSA Routine 02/15/2008 1:53 PM CDT LIPID PANEL Routine 02/15/2008 1:53 PM CDT COMPREHENSIVE METABOLIC PANEL Routine 02/15/2008 1:53 PM CDT documented in this encounter Results * URINALYSIS (02/15/2008 1:53 PM CDT) Pathologist [facility] UROBILINOGEN UA <1 <=1 mg/dL [facility] PH UA 7.0 5.0 - 8.0 [facility] KETONES UA Negative Negative [facility] CLARITY UA Clear Clear [facility] BILIRUBIN UA Negative Negative [facility] PROTEIN UA Negative Negative [facility] LEUKOCYTE ESTERASE UA Negative Negative [facility] SPECIFIC GRAVITY UA 1.011 1.001 - 1.035 [facility] GLUCOSE UA Negative Negative [facility] BLOOD UA Negative Negative [facility] COLOR UA Yellow [facility] NITRITE UA Negative Negative [facility] 02/15/2008 1:53 PM CDT 02/15/2008 3:38 PM CDT Jose Charles MD URINE ORDERABLES Final R esult Performing Organization Address City/[facility]/ZIP Co de Phone Number [facility] [address] [facility] [employer] [place] [address] * TSH (02/15/2008 1:53 PM CDT) [facility] TSH 1.86 0.27 - 4.20 uU/mL [facility] Blood specimen (specimen) 02/15/2008 1:53 PM CDT 02/15/2008 3:37 PM CDT Jose Charles MD CHEMISTRY ORDERABLES Tristin norma Performing Organization Address City/[facility]/ZIP Co de Phone Number [facility] [address] [place] [address] * (ABNORMAL) LIPID PANEL (02/15/2008 1:53 PM CDT) CHOLESTEROL 237(H) 100 - 199 mg/dL [facility] CHOL/HDL RATIO 7.4(H) 2.0 - 5.0 [facility] TRIGLYCERIDE 395(H) 10 - 149 mg/dL [facility] HDL 32(L) 40 - 59 mg/dL [facility] LDL CALCULATED 126(H) <=99 mg/dL [facility] LIPID PANEL COMMENT See Below [facility] Comment: The adult ATP and pediatric NCEP classifications for lipids are available on the [facility] Intranet at: [email or web address] Select: Lab Policies and Procedures,Current Select: Lipid Panel Interpretation Blood specimen (specimen) 02/15/2008 1:53 PM CDT 02/15/2008 3:37 PM CDT us Jose Charles MD CHEMISTRY ORDERABLES Tristin Blackburn Organization Address City/State/ZIP Co de Phone Number [facility] [address] [facility] [place] [address] * (ABNORMAL) CBC WITH DIFFERENTIAL (02/15/2008 1:53 PM CDT) HEMATOCRIT 44.9 40.0 - 48.0 % [facility] RDW-STDEV 42.8 37.1 - 48.7 fL [facility] RBC 4.86 4.50 - 5.40 M/uL [facility] MCHC 34.3 31.5 - 35.5 % [facility] MCV 92.4 82.0 - 99.0 fL [facility] PLATELETS 195 140 - 350 K/uL [facility] HEMOGLOBIN 15.4 13.6 - 16.5 g/dL [facility] RDW 12.7 11.5 - 14.5 % [facility] WBC 3.8(L) 4.0 - 9.8 K/uL [facility] MCH 31.7 27.2 - 32.6 pg [facility] MPV 11.2 9.3 - 12.4 fL [facility] BASOPHILS 1 0 - 2 % [facility] BASOPHILS ABSOLUTE 0.02 0.00 - 0.20 K/uL [facility] MONOCYTES 9 3 - 13 % [facility] MONOCYTE ABSOLUTE 0.36 0.10 - 1.30 K/uL [facility] NEUTROPHILS 55 45 - 70 % [facility] NEUTROPHIL ABSOLUTE 2.13 1.90 - 7.00 K/uL [facility] EOSINOPHILS 3 0 - 7 % [facility] EOSINOPHIL ABSOLUTE 0.11 0.00 - 0.70 K/uL [facility] LYMPHOCYTES 32 16 - 45 % [facility] LYMPHOCYTE ABSOLUTE 1.22 0.70 - 4.50 K/uL [facility] Blood specimen (specimen) 02/15/2008 1:53 PM CDT 02/15/2008 3:37 PM CDT us Jose Charles MD HEMATOLOGY ORDERABLES Ed ited INTERFACE SYSTEM Refer to clinic/hospital department [facility] [address] [place] [address] * PSA (02/15/2008 1:53 PM CDT) PSA 0.9 0.0 - 4.0 ng/mL [facility] Comment:Performed on [employer] System Blood specimen (specimen) 02/15/2008 1:53 PM CDT 02/15/2008 3:37 PM CDT Jose Charles MD CHEMISTRY ORDERABLES Tristin norma Performing Organization Address [facility] Co de Phone Number [facility] [address] [place] [address] * URINALYSIS WITH REFLEX CULTURE (02/15/2008 1:53 PM CDT) Pathologist [facility] URINE CULTURE ORDER Not indicated [facility] Comment: Criteria for a reflex culture include one or more of the following: Abnormal nitrite, leukocyte esterase, WBCs or RBCs. Lack of qualifying criteria does not exclude the possiblity of a urinary tract infection. Dilute urine, drug interference, etc. may decrease the sensitivity of the criteria analytes. Urine specimen (specimen) 02/15/2008 1:53 PM CDT 02/15/2008 3:38 PM CDT Jose Charles MD URINE ORDERABLES Final R esult Performing Organization Address [facility] de Phone Number [facility] [address] [place] [address] * (ABNORMAL) COMPREHENSIVE METABOLIC PANEL (02/15/2008 1:53 PM CDT) CALCIUM 8.7 8.4 - 10.2 mg/dL [facility] ALBUMIN 4.6 3.4 - 4.8 g/dL [facility] CHLORIDE 102 96 - 108 mmol/L [facility] CREATININE 0.95 0.67 - 1.17 mg/dL [facility] ALT 25 0 - 41 U/L [facility] SODIUM 137 135 - 145 mmol/L [facility] ALKALINE PHOSPHATASE 48 40 - 129 U/L [facility] CO2 23 22 - 30 mmol/L [facility] BILIRUBIN TOTAL 0.7 0.2 - 1.0 mg/dL [facility] POTASSIUM 3.9 3.5 - 4.9 mmol/L [facility] TOTAL PROTEIN 6.9 6.3 - 8.6 g/dL [facility] GLUCOSE 121(H) 65 - 99 mg/dL [facility] AST 20 12 - 38 U/L [facility] BUN 15 6 - 20 mg/dL [facility] GFR, >60 >=60 mL/min/1. 7 sq meter [facility] GFR >60 >=60 mL/min/1. 7 sq meter [facility] Comment: Estimated GFR rate interpretative information for both Americans and non- Americans is available on the [facility] Intranet at: [email or web address] Select: Lab Policies and Procedures Select: Reference Ranges - GFR Blood specimen (specimen) 02/15/2008 1:53 PM CDT 02/15/2008 3:37 PM CDT Jose Charles MD CHEMISTRY ORDERABLES Tristin norma [facility] Organization Address City/State/ZIP Co de Phone Number [facility] [address] [place] [address] documented in this encounter Visit Diagnoses Diagnosis Other and unspecified hyperlipidemia documented in this encounter Care Teams [employer] 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
--- OUTSIDE RECORDS SUMMARY | 2025-04-05 12:40 | XMS_ITS | Encounter Summary ---
Author Organization [facility] Address 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 Gender Identity Not on file Sexual Orientation Not on file documented as of this encounter Progress Notes * Jose Charles MD - 04/07/2008 11:09 AM CDT WHO TOOK THE CALL: Jose Charles TIME:05:03 pm will raise the lipitor to 20 mg/day Electronically Signed by: Jose Charles MD on Tuesday, February 19, 2008 documented in this encounter Plan of Treatment Not on file documented as of this encounter Visit Diagnoses Not on filedocumented in this encounter Care Teams Risk Mgr Relationship Specialty Start Date End Date Tee Gonzalez MD [address] [place] [id number] PCP - General Internal Medicine 05/11/19 documented as of this encounter
--- NOTE | 2025-04-05 12:52 | ECHO_ITS ---
Patient Info Name: Max Stone Age: 79 years : 1945 Gender: Male Ht: 70 in Wt: 214 lbs BSA: 2.22 m2 BP: 167 / 90 mmHg Exam Date: 04/05/2025 1:00 PM Patient Status: O Admit Date: 04/05/2025 Exam Type: CA echo doppler color flow Complete two-dimensional, color flow and Doppler transthoracic echocardiogram is performed. Doll Wig Maker Rooted Hair: Мария Son Attending Provider: Asad Kinney DO Summary 1. Complete two-dimensional, color flow and Doppler transthoracic echocardiogram is performed. 2. Left ventricular chamber dimension is normal. 3. Left ventricular systolic function is normal, estimated at 65-70. 4. There is mild concentric increased left ventricular wall thickness. 5. The left ventricular diastolic function is grade I diastolic dysfunction. 6. E/e' 14 is mildly elevated. 7. Left atrial chamber dimension is mildly enlarged. 8. There is severe aortic valve sclerosis. 9. There is moderate aortic valve stenosis with a peak velocity of 263 cm/s, mean gradient of 19 mmHg, and aortic valve area of 1.2 cm2. 10. The mitral valve has mildly calcified leaflets and a moderately calcified annulus. 11. There is trace mitral valve regurgitation. 12. No pulmonary hypertension, estimated pulmonary arterial systolic pressure is 25 mmHg. 13. There is trace pulmonic regurgitation. Left Ventricle Left ventricular chamber dimension is normal. Left ventricular systolic function is normal, estimated at 65-70. There is mild concentric increased left ventricular wall thickness. The left ventricular diastolic function is grade I diastolic dysfunction. E/e' 14 is mildly elevated. Right Ventricle Right ventricular chamber dimension is normal. Right ventricular systolic function is normal and with normal TAPSE 1.8 cm. Left Atria Left atrial chamber dimension is mildly enlarged. Right Atria Right atrial chamber dimension is normal. Aortic Valve The aortic valve is trileaflet. There is severe aortic valve sclerosis. There is moderate aortic valve stenosis with a peak velocity of 263 cm/s, mean gradient of 19 mmHg, and aortic valve area of 1.2 cm2. There is no aortic valve regurgitation. Pulmonic Valve There is trace pulmonic regurgitation. Mitral Valve The mitral valve has mildly calcified leaflets and a moderately calcified annulus. There is no mitral valve stenosis. There is trace mitral valve regurgitation. Tricuspid Valve There is no tricuspid valve regurgitation. No pulmonary hypertension, estimated pulmonary arterial systolic pressure is 25 mmHg. Pericardium/Pleural There is no pericardial effusion. Inferior Vena Cava Normal inferior vena cava with >50% collapse upon inspiration consistent with normal right atrial pressure, 5 mmHg. Aorta The aortic root size at the sinus of Valsalva is normal. Left Ventricular Outflow Tract Name Value Normal LVOT 2D LVOT Diameter 2.0 cm LVOT Doppler LVOT Peak Velocity 90 cm/s LVOT Peak Gradient 3 mmHg LVOT Mean Gradient 2 mmHg LVOT VTI 24 cm LVOT VTI/AV VTI Ratio 0.4 LVOT Stroke Volume 77 ml LVOT CO 14.9 l/min LVOT CI 6.7 l/min/m2 Pulmonic Valve Name Value Normal PV Doppler PV Peak Velocity 100 cm/s PV Peak Gradient 4 mmHg Mitral Valve Name Value Normal MV Diastolic Function MV E Peak Velocity 82 cm/s MV A Peak Velocity 136 cm/s MV E/A 0.6 MV Decel Time (PW) 280 ms MV Annular TDI MV E/e' (Septal) 13.8 MV E/e' (Lateral) 14.2 MV E/e' (Average) 14.0 Tricuspid Valve Name Value Normal TV Regurgitation Doppler TR Peak Velocity 224 cm/s TR Peak Gradient 18 mmHg Estimated PAP/RSVP RA Pressure 5 mmHg <=5 PA Systolic Pressure 25 mmHg <36 RV Systolic Pressure 25 mmHg <36 TV Annular TDI TV Lateral Dimple s' Velocity 12.6 cm/s >=9.5 Aorta Name Value Normal Ascending Aorta Ao Root Diameter (MM) 3.2 cm Ao Root Diam Index (MM) 1.4 cm/m2 Aortic Valve Name Value Normal AV Doppler AV Peak Velocity 263 cm/s AV Peak Gradient 28 mmHg AV Mean Gradient 19 mmHg AV VTI 65 cm AV Area (Cont Eq VTI) 1.2 cm2 >=3.0 AV Area (Cont Eq Brendon) 1.1 cm2 AV DI (Brendon) 0.34 AV Regurgitation 2D LVOT Area 3.3 cm2 Ventricles Name Value Normal LV Dimensions 2D/MM IVS Diastolic Thickness (2D) 1.3 cm 0.6-1.0 LVID Diastole (2D) 4.7 cm 4.2-5.8 LVIW Diastolic Thickness (2D) 1.3 cm 0.6-1.0 LVID Systole (2D) 2.9 cm 2.5-4.0 LVOT Diameter 2.0 cm LV Mass (2D Cubed) 239.74 g 88.00-224.00 LV Mass Index (2D Cubed) 108 g/m2 49-115 Relative Wall Thickness (2D) 0.56 <=0.42 LV Fractional Shortening/Ejection Fraction 2D/MM LV Fractional Shortening (2D) 38 % 25-43 LV EF (2D Teichselam) 68 % LV Diastolic Volume (4C MOD) 116 ml LV EF (4C MOD) 69 % LV Diastolic Volume (2C MOD) 120 ml LV EF (2C MOD) 65 % LV Diastolic Volume (BP MOD) 119 ml 62-150 LV Diastolic Volume Index (BP MOD) 54 ml/m2 34-74 LV Systolic Volume (BP MOD) 40 ml 21-61 LV Systolic Volume Index (BP MOD) 18 ml/m2 11-31 LV EF (BP MOD) 67 % 52-72 LV Diastolic Length (4C) 8.8 cm LV Systolic Length (4C) 7.6 cm LV Stroke Volume (4C MOD) 80 ml RV Dimensions 2D/MM RVID Diastole (2D) 4.0 cm 2.1-3.5 Atria Name Value Normal LA Dimensions LA Dimension (MM) 4.1 cm 3.0-4.0 LA Volume (4C A-L) 54 ml LA Volume (BP A-L) 62 ml RA Dimensions RA Systolic Major [place] Length (4C) 4.7 cm 2.1-2.7 RA Area (4C) 11.7 cm2 <=18.0 Report Signatures Amended by Asad Kinney DO on 04/05/2025 02:01 PM
== END 2025-04-05 12:38 | disposition home or self-care (01) ==
PROVIDERS: PCP Emergency Medicine; Visit Provider Internal Medicine Cardiovascular Disease
DX: I35.0 Nonrheumatic aortic (valve) stenosis (principal)
CPT/HCPCS: 93306

== ENCOUNTER 2025-05-09 15:30 | Emergency (ER) | payer OTHER, SELFPAY ==
[2025-05-09 15:37] VITALS: BP 193/87; PULSE 76; RESP 16; TEMP 36.4; O2SAT 97
--- NOTE | 2025-05-09 15:57 | ED_ITS ---
HPI - Back Pain/Injury General Chief Complaint: Back Pain/Injury Stated Complaint: pain in lower back Time Seen by Provider: 05/09/25 15:30 Source: patient Mode of arrival: ambulatory Limitations: no limitations History of Present Illness HPI Narrative: Patient is a 79-year-old male who presents with low back for 3 days. Patient denies any injury but has been more active over the past several days as his family was in town for the 05 of May. Reports pain worsens with twisting and changing positions. Denies any numbness, tingling or weakness down legs, loss of bowel or bladder. Has taken Advil and Tylenol which he states has helped moderately. Denies any fever, chills, nausea, vomiting, diarrhea. No history of kidney stone Related Data Home Medications ?Medication ?Instructions ?Recorded ?Confirmed ?Last Taken ?Type calcium 600 mg (as 1 cap PO DAILY 12/16/19 04/25/25 10/18/24 History carbonate)-vitamin D3 5 mcg (200 unit) capsule (Calcium 600 + D(3)) calcium polycarbophil 625 mg 625 mg PO DAILY 12/16/19 04/25/25 10/18/24 History tablet (FiberCon) folic acid 1 mg tablet 1 mg PO DAILY 12/16/19 04/25/25 10/18/24 History multivitamin 1 tablet PO DAILY 12/16/19 04/25/25 10/18/24 History doxycycline hyclate 20 mg tablet 40 mg PO BID 07/09/24 04/25/25 10/18/24 History acetaminophen 500 mg tablet 1,000 mg PO QHS 07/11/24 04/25/25 10/18/24 History cholecalciferol (vitamin D3) 50 50 mcg PO BID 07/11/24 04/25/25 10/18/24 History mcg (2,000 unit) tablet omega [id number]-fish oil 100 1 cap PO BID 07/11/24 04/25/25 10/18/24 History mg-160 mg-1,000 mg capsule (Fish Oil) Allergies Allergy/AdvReac Type Severity Reaction Status Date / Time No Known Allergies Allergy Verified 05/09/25 16:41 Review of Systems Review of Systems: All systems reviewed & are unremarkable except as noted in HPI and below Constitutional: Constitutional: Denies body ache(s), Denies chills, Denies fatigue, Denies fever(s), Denies headache(s), Denies malaise and Denies weakness Eyes: Eyes: Denies blurry vision, Denies irritation and Denies loss of vision ENT: Denies otalgia, Denies headache(s), Denies nasal discharge, Denies sinus pain and Denies sore throat Cardiovascular: Cardiovascular: Denies chest pain, Denies irregular heart rhythm and Denies dyspnea Respiratory: Respiratory: Denies dyspnea Gastrointestinal: Gastrointestinal: Denies abdominal pain, Denies melena, Denies hematochezia, Denies diarrhea, Denies nausea and Denies vomiting Musculoskeletal: Musculoskeletal: Reports back pain, Denies myalgias and Denies arthralgias Integumentary/Breasts: Skin/Breast: Denies pruritus and Denies rash Neurologic: Denies headache(s), Denies loss of vision and Denies weakness Psychiatric: Psychiatric: Reports no additional psychiatric complaints Endocrine: Endocrine: Denies fatigue PMFSH Past Medical History Medical History Dehydration RIVER (acute kidney injury) Colitis UTI (urinary tract infection) Gout Alternating constipation and diarrhea Constipation Closed fracture of one rib of right side Hyperglycemia Vitamin D deficiency Patient had no falls in past year Myelomalacia of cervical cord Muscle spasms of both lower extremities History of fall Deficiency of other specified B group vitamins (05/20/19) Cervical stenosis of spine Dysuria Dysuria Testicular swelling Central spinal stenosis Vitamin B 12 deficiency Radiculopathy Knee pain Hip pain Surgical History Surgical History H/O Spinal surgery Family History Family History Mother Patient's mother is , Onset Age: 101 Father Family history of cardiovascular disease, Onset Age: 66 Acute myocardial infarction Sibling Family history of Parkinson's disease Social History Social History Smoking status: Never smoker Second hand tobacco smoke exposure: Yes Alcohol intake: current Drinks per week: 2 Substance use: never Substance use type: does not use Current Housing: Decline to Answer Concerned About Future Housing: Decline to Answer Difficulty Paying Gas/Electric Bills: Decline to Answer Difficulty Paying for Meds: Decline to Answer Currently Unemployed: Decline to Answer Education: Decline to Answer Difficulty w/ Childcare or Family Care: Decline to Answer Living arrangements: with family 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 There is no relevant family history pertinent to the presenting complaint. Exam Const: General: cooperative, healthy appearing, comfortable, no acute distress and well nourished Nutritional Appearance: well nourished Orientation/consciousness: patient oriented x3 Limitations: no limitations HENMT: Head: normal to inspection, normocephalic and atraumatic Ears: hearing grossly normal bilaterally and external ears normal Face/Nose/Sinus: Normal external nose present, normal facial exam and face symmetric Face and sinus: normal facial exam and face symmetric Mouth: Yes lip normal Eyes: General: appearance normal, both eyes and all related structures Alignment and Position: alignment normal and position normal Periorbital: periorbital findings normal Eyelids: eyelids normal Pupils: Equal, round and reactive pupils present EOM: EOMs intact bilaterally Neck: Neck: normal visual inspection, full ROM and supple Chest: Chest palpation & inspection: normal inspection of the chest Resp: Effort & Inspection: normal respiratory effort and able to speak in complete sentences Auscultation: clear to auscultation bilaterally Cardio: Rate: regular rate Rhythm: regular rhythm Heart sounds: S1 normal heart sound present and S2 normal heart sound present GI: Inspection: normal to inspection Back/Spine/Pelvis: Back: no CVA tenderness Thoracic/Lumbar Spine: thoracic and lumbar spine normal to inspection, pain with thoraco-lumbar ROM, paraspinal muscle tenderness bilaterally in the upper lumbar, No thoracic spinal tenderness and No lumbar spinal tenderness Skin: General skin exam: normal color and no rashes or lesions noted Neuro: General: patient oriented x3 and moves all extremities Cranial nerves: Yes Equal, round and reactive pupils present Speech: normal speech Gait exam (Neuro): Normal gait present Extrem: General: normal to inspection, full ROM and no edema Psych: Appearance: grossly normal and well kempt Mental Status: mental status grossly normal Speech and movement: Normal speech and movement present Affect: normal affect Attitude: cooperative Thought process: Normal thought process present Course Course Emergency Course: Patient is aware of diagnosis, understands and agrees to treatment plan. Anticipatory guidance given. Patient agrees to follow-up as directed and is aware of reasons to seek care at the emergency department. Portions of this record may have been created with voice recognition software Level of Care: Express Care Visit Vital Signs Vital signs: Vital Signs Temperature 36.4 C 05/09/25 15:37 Pulse Rate 76 05/09/25 15:37 Respiratory Rate 16 05/09/25 15:37 Blood Pressure 193/87 H 05/09/25 15:37 Pulse Oximetry 97 05/09/25 15:37 Oxygen Delivery Room Air 05/09/25 15:37 Temperature 36.4 C 05/09/25 15:37 Pulse Rate 76 05/09/25 15:37 Respiratory Rate 16 05/09/25 15:37 Blood Pressure 193/87 H 05/09/25 15:37 Pulse Oximetry 97 05/09/25 15:37 Oxygen Delivery Room Air 05/09/25 15:37 Reviewed MDM - Back Pain/Injury MDM Narrative Medical decision making narrative: UA shows no signs of infection and low suspicion for kidney stone. Symptoms consistent with muscle strain from overactivity No risk factors or findings concerning for epidural abscess, diskitis, vertebral osteomyelitis, cord compression, cauda equina, vertebral fracture or bone malignancy, AAA, or pyelonephritis. Pt well hydrated appearing, in no respiratory distress, hemodynamically stable. Recommend supportive care. The patient is stable at time of discharge the clinical impression was discussed and the patient was given the opportunity to ask questions, which were addressed as completely as possible given the information available at present. Anticipatory guidance and return to care precautions were discussed and the importance of primary care follow-up was stressed and encouraged. The patient voiced understanding of the plan, indications to return, and the need for follow-up. Exam findings show no acute concerns or changes Patient is appropriate for outpatient treatment and follow-up. Differential Diagnosis Differential diagnosis: Likely lumbar radiculopathy, sciatica and strain of lumbar region Medical Records Attestation: I reviewed the patient's medical records. Lab Data Attestation: I reviewed the patient's lab results. Labs: Lab Results 05/09/25 Range/Units 15:40 POC Urine Color Yellow POC Urine Clarity Clear POC Urine pH 6.0 POC Ur Specif [place] 1.020 POC Urine Protein Negative (Negative) POC Ur Glucose (UA) Negative (Negative) POC Urine Ketones Negative (Negative) POC Urine Blood Negative (Negative) POC Urine Nitrite Negative (Negative) POC Urine Bilirubin Negative (Negative) POC Urine Urobilinogen 0.2 POC U Leukocyte Esteras Negative (Negative) Discharge Plan Discharge Clinical Impression: Low back strain Qualifiers: Encounter type: initial encounter Qualified Code(s): S39.012A - Strain of musc le, fascia and tendon of lower back, initial encounter Patient Disposition: Home Condition: Stable Instructions: Low Back Strain (ED) Additional Instructions: Take steroids per package instructions, take muscle relaxers every 8 hours as needed for muscle spasm. do not drive or make any important decisions while on this medication for it can make you drowsy. After finishing steroids you may take ibuprofen/Aleve for pain. Exercise:Combine aerobic exercise, like walking or swimming, with specific exercises to keep the muscles in your back and abdomen strong and flexible.bed rest is not recommended. Proper Lifting:Be sure to lift heavy items with your legs, not your back. Do not bend over to pick something up. Keep your back straight and bend at your knees. Weight:Maintain a healthy weight. Being overweight puts added stress on your lower back. Avoid Smoking:Both the smoke and the nicotine cause your spine to age faster than normal. Proper Posture:Good posture is important for avoiding future problems. A therapist can teach you how to safely stand, sit, and lift. Use warm moist heat or ice to help with pain. Follow up with Primary provider in 2-3 days, This may become a chronic condition and they will be the one to help manage your pain and order additional testing. Follow-up with your doctor for further care and evaluation or seek ER if you develop problems with bladder/bowel function, weakness or loss of feeling in one or both of your legs. Your blood pressure was elevated above 120/80 today at Urgent Care. This puts you above the threshold for follow up visit with a primary care provider. High blood pressure does not usually cause any symptoms, however it may lead to kidney failure, stroke, heart disease just to name a few if untreated . Many people are anxious when seeing a provider or nurse. As a result, you are not diagnosed with hypertension at this time unless your blood pressure is persistently high at two office visits at least one week apart. Some things that can help lower blood pressure are lifestyle modifications, such as light exercise, decreased salt in diet, and weight loss. It is important to follow up with a PCP about this within 1 week. Patient Language: Sammarinese Prescriptions: New baclofen 10 mg tablet 10 mg PO BID Qty: 10 0RF methylprednisolone [Medrol (Lex)] 4 mg tablets,dose pack See Rx Instructions .ROUTE .COMPLEX Qty: 21 0RF Rx Instructions: orally per package directions No Action doxycycline hyclate 20 mg tablet 40 mg PO BID sildenafil 100 mg tablet See Rx Instructions .ROUTE .COMPLEX Qty: 6 2RF Dose Instruction: TAKE 1 TAB BY MOUTH DAILY NEEDED FOR SEXUAL ACTIVITY, ADMINISTER 30 MINS TO 4 HRS BEFORE ACTIVITY Rx Instructions: TAKE 1 TAB BY MOUTH DAILY NEEDED FOR SEXUAL ACTIVITY, ADMINISTER 30 MINS TO 4 HRS BEFORE ACTIVITY gabapentin 300 mg capsule See Rx Instructions .ROUTE .COMPLEX Qty: 270 2RF Dose Instruction: TAKE 1 CAPSULE BY MOUTH THREE TIMES A DAY Rx Instructions: TAKE 1 CAPSULE BY MOUTH THREE TIMES A DAY losartan 50 mg tablet 50 mg PO DAILY Qty: 90 2RF tamsulosin 0.4 mg capsule See Rx Instructions .ROUTE .COMPLEX Qty: 90 2RF Dose Instruction: TAKE 1 CAPSULE BY MOUTH EVERY DAY Rx Instructions: TAKE 1 CAPSULE BY MOUTH EVERY DAY cholecalciferol (vitamin D3) 50 mcg (2,000 unit) tablet 50 mcg PO BID Rx Instructions: TAKE 2 TABLETS BY MOUTH EVERY DAY Fish Oil 100-160-1,000 mg capsule 1 cap PO BID Rx Instructions: fish oil 1 gm bid orally; acetaminophen 500 mg Tablet 1,000 mg PO QHS multivitamin Tablet 1 tablet PO DAILY calcium polycarbophil [FiberCon] 625 mg Tablet 625 mg PO DAILY folic acid 1 mg Tablet 1 mg PO DAILY Calcium 600 + D(3) 600 mg calcium- 200 unit Capsule 1 cap PO DAILY omeprazole 40 mg capsule,delayed release(DR/EC) See Rx Instructions .ROUTE .COMPLEX Qty: 90 2RF Dose Instruction: TAKE 1 CAPSULE BY MOUTH EVERY DAY Rx Instructions: TAKE 1 CAPSULE BY MOUTH EVERY DAY atorvastatin 40 mg tablet See Rx Instructions .ROUTE .COMPLEX Qty: 90 2RF Dose Instruction: TAKE 1 TABLET BY MOUTH EVERY DAY Rx Instructions: TAKE 1 TABLET BY MOUTH EVERY DAY furosemide 20 mg tablet See Rx Instructions .ROUTE .COMPLEX Qty: 45 2RF Dose Instruction: TAKE 1 TABLET BY MOUTH EVERY OTHER DAY NEEDED FOR EDEMA Rx Instructions: TAKE 1 TABLET BY MOUTH EVERY OTHER DAY NEEDED FOR EDEMA Follow-up/Referrals: Tee Gonzalez MD [Primary Care Provider] - 3 Days Time of Disposition: 16:54
[2025-05-09 16:04] LABS: EDUAAPPEAR Clear; EDUABILI Negative (Negative); EDUABLOOD Negative (Negative); EDUACOLOR1 Yellow; EDUAGLUCOSE Negative (Negative); EDUAKETONE Negative (Negative); EDUALEUKO Negative (Negative); EDUANITRATE Negative (Negative); EDUAPH 6.0; EDUAPROTEIN Negative (Negative); EDUASPGRAVITY 1.020; EDUAUROBILI 0.2
== END 2025-05-09 17:05 | disposition home or self-care (01) ==
PROVIDERS: Emergency Provider Nurse Practitioner Family; PCP Emergency Medicine
DX: S39.012A Strain of muscle, fascia and tendon of lower back, initial encounter (principal); X58.XXXA Exposure to other specified factors, initial encounter; M10.9 Gout, unspecified; M48.02 Spinal stenosis, cervical region; E55.9 Vitamin D deficiency, unspecified
CPT/HCPCS: 81003; 99213; G0463